=== PATIENT | male | born 1975 | race African-American/Black ===

== ENCOUNTER → 2022-04-14 08:18 | Outpatient (REF) | payer OTHER, SELFPAY ==
--- NOTE | ~2022-04-14 | XR_ITS ---
EXAMINATION: XR CHEST CLINICAL INFORMATION: SOB COMPARISON: None TECHNIQUE: 2 views of the chest were obtained. FINDINGS: No significant abnormality is noted involving the heart, lungs, mediastinum, bony thorax or soft tissues. XR/XR chest 2V IMPRESSION: Unremarkable chest examination.
--- NOTE | 2022-04-14 08:52 | CA_ITS ---
Transthoracic Echocardiogram Patient (Last, First, Middle): Andrew Regalado, Gender: Male Date of : 1975 Age: 46 Procedure Date: 04/14/2022 Procedure Type: Transthoracic Echocardiogram Location: OP Height: 160.02 cm Weight: 70.31 kg BSA: 1.74 m2 Heart Rate: bpm BP: 124 / 80 mmHg Magazine Hand: Referring MD: George Gonzales MD Symptoms: BARNARD Study Quality: Good ECG Rhythm: Sinus Conclusions: - Normal left ventricular size and systolic function. There is mildly increased left ventricular wall thickness. The visually estimated ejection fraction is between 60-65%. - The basal inferior segment is akinetic. - The mid inferior segment is hypokinetic. - Normal right ventricular cavity size and systolic function. Findings Left Ventricle Normal left ventricular size and systolic function. There is mildly increased left ventricular wall thickness. The visually estimated ejection fraction is between 60-65%. There is evidence of regional wall motion abnormalities. Diastolic function is normal for age. Wall Motion Rest Echo Findings The mid inferior segment is hypokinetic. The basal inferior segment is akinetic. Right Ventricle Normal right ventricular cavity size and systolic function. Atria Both atria are normal in size. Aortic Valve Normal aortic valve structure and function. There is no aortic valve stenosis. There is no aortic valve regurgitation. Mitral Valve The mitral valve appears normal. There is no mitral valve regurgitation. There is no mitral valve stenosis. Pulmonic Valve The pulmonic valve was not well visualized. Tricuspid Valve Normal tricuspid valve structure and function. There is no tricuspid valve regurgitation. Normal right atrial pressure. There is no evidence of pulmonary hypertension. Great Vessels All visible segments of the aorta are normal in size. The pulmonary artery was not well visualized. Venous The inferior vena cava is normal in size and collapses greater than 50% with inspiration. Pericardium/Pleural There is no evidence of pericardial effusion. Prior Study Comparison No prior study available for comparison. Measurements 2D Linear Measurements IVSd: 1.30 0.6-0.9/0.6-1.0 cm LVIDd: 4.15 3.9-5.3/4.2-5.9 cm LVIDd Index: 2.39 2.4-3.2/2.2-3.1 cm/m2 LVIDs: 2.62 2.0-3.6 cm LVPWd: 1.29 0.7-1.1 cm Ao Root: 2.90 2.1-3.5 cm LA Diam: 3.50 2.7-3.8/3.0-4.0 cm LAIDs Index: 2.01 1.5-2.3 cm/m2 LV Mass: 244.10 67-162/88-224 g LV Mass Index: 140.29 43-95/49-115 g/m2 LVOT Diam: 2.20 3.0+(-)1.3 cm Mitral Valve MV Pk E: 0.54 MV PK A: 0.72 MV Decel Time: 172.00 E/A: 0.80 E'Lateral: 14.30 E'Medial: 6.42 E/E' Med: 8.40 E/E' Lat: 3.80 PHT: 50.00 MVA PHT: 4.40 Decel [place]: 3.14 Aortic Valve AoV Pk Raul: 1.39 AoV Mn Raul: 0.86 AoV VTI: 0.29 AoV Pk Grad: 8.00 Aov Mn Grad: 4.00 ROEL Cont.VTI: 2.14 LVOT LVOT Pk Raul: 0.76 LVOT Mn Raul: 0.50 LVOT VTI: 0.16 LVOT Pk Grad: 2.00 LVOT Mn Grad: 1.00 LVOT Diam: 2.20 LVOT Area: 3.80 Diastolic Function MV Pk E: 0.54 MV Pk A: 0.72 E/A: 0.80 E'Medial: 6.42 E/E' Med: 8.40 E' Laterial: 14.30 E/E' Lat: 3.80 Tricuspid Valve TR Pk Raul: 2.24 TR Pk Grad: 20.00 RVSP: 25.00 Great Vessels Aorta Ao Root-2D: 2.90 2.0-3.7 cm Ao Asc: 2.80 2.1-3.4 cm Pulmonary Valve PV Pk Raul: 0.90 Peak PV Grad: 3.00 Updated in Other Vendor System with Status of Final Salvador Wheat MD electronically signed on 04/16/2022 12:16:50 PM with status of Final
== END ==
LOC: HO.CARD 08:18
PROVIDERS: PCP Family Medicine; Visit Provider Family Medicine
DX: R06.02 Shortness of breath (principal)
CPT/HCPCS: 71046; 93306

== ENCOUNTER → 2022-05-19 08:01 | Outpatient (REF) | payer OTHER, SELFPAY ==
--- NOTE | ~2022-05-19 | NM_ITS ---
EXERCISE MYOCARDIAL PERFUSION STUDY INDICATION: Shortness of breath, assess for coronary disease and ischemia TECHNIQUE: The patient was brought in for an exercise perfusion study on 05/19/2022. Patient performed exercise as per Everardo protocol and was injected 25 mCi of sestamibi once target heart rate was achieved. Images were obtained using the SPECT gamma camera interlaced with the gating device. Images were obtained in supine position. Resting perfusion study was performed on 05/23/2022. Patient was administered 25 mCi of sestamibi intravenously at rest. Images were then obtained in supine position. Total DLP 86mGy-cm. Images were processed with the software and compared side to side in short axis, horizontal long axis and vertical long axis views. FINDINGS: Raw images were reviewed. The stress perfusion study showed diminished tracer uptake along the inferior wall but there is also adjacent subdiaphragmatic tracer uptake with CT attenuation correction, still difficult to assess inferior wall due to the subdiaphragmatic uptake. The gated study shows normal LV systolic function with calculated LVEF of 72%. LV cavity is normal in size. The gated study shows normal wall thickening and contraction of segments. Resting study shows no significant perfusion abnormality in the septum, anterior wall, lateral wall and apex. There is subdiaphragmatic tracer uptake interfering with inferior wall assessment. This is in both uncorrected as well as attenuation corrected images. Gating at rest reveals normal wall motion with ejection fraction at 71%. The findings are consistent with no definite reversible defects. Inferior wall perfusion difficult to assess due to adjacent subdiaphragmatic uptake. NM/NM rusty perf SPECT rest & str IMPRESSION: 1. Myocardial perfusion imaging study shows no clear evidence of any ischemia or infarction. Inferior wall perfusion difficult to assess due to subdiaphragmatic tracer uptake, but seems to have normal contractility on gating. 2. Gated LVEF is 72% during stress and 71% during rest. 3. Transient ischemic dilatation not present. EKG component of the test reported separately.
--- NOTE | 2022-05-19 08:04 | CA_ITS ---
Acquisition Time: 2022-05-19 08:06:50 Total Exercise Time: 00:07:45 Test Indications: SOB Medications: SEE CHART Protocol: MARCOS Max HR: 151 BPM 88% of Pred: 171 BPM Max BP: 148/068 mmHG Max Work Load: 9.7 METS Exercise stress test with exercise 7 min 45 sec of Marcos protocol, with mild to mod sob, no chest discomfort, without arrythmia, with normotensive response to exercise, without EKG changes meeting criteria for ischemia, in later recovery there is downsloping ST lead III and slight in V5-6 of unclear significance. Nuclear images pending. Test reviewed with Dr Vences Referred By: George Gonzales Overread By: NATHANIEL CRONIN
== END ==
LOC: HO.CARD 08:01
PROVIDERS: Visit Provider Family Medicine
DX: R06.02 Shortness of breath (principal); I51.7 Cardiomegaly
CPT/HCPCS: 78452; 93017; A9500

== ENCOUNTER 2022-05-23 08:18 | Outpatient (REF) | payer OTHER, SELFPAY ==
[2022-05-23 08:57] LABS: MANUAL DIFF FLAG NO
[2022-05-23 09:33] LABS: Basophils Percent Auto 0.8 % (0-2); Eosinophils Absolute Auto 0.1 X10*3/uL (0.0-0.4); Eosinophils Percent Auto 2.1 % (0-4); Hematocrit 42.9 % (42.0-52.0); Hemoglobin 14.6 g/dl (14.0-18.0); Imm Gran Abs Auto 0.02 X10*3/uL (0.00-0.03); Imm Gran Pct Auto 0.4 % (0.0-0.4); Lymphocytes Absolute Auto 0.9 X10*3/uL (1.2-4.9); Lymphocytes Percent Auto 17.8 % (20-40); Mean Corpuscular Volume 82.3 fL (80.0-98.0); Mean Platelet Volume 9.7 fL (9.4-12.4); Monocytes Absolute Auto 0.3 X10*3/uL (0.1-1.2); Monocytes Percent Auto 6.2 % (2-11); Neutrophils Absolute Auto 3.8 x10*3/uL (2.0-8.3); Neutrophils Percent Auto 72.7 % (45-73); Platelet Count 286 X10*3/uL (160-400); Red Blood Count 5.21 X10*6/uL (4.60-5.80); Red Cell Distribution Width 12.2 % (11.0-16.0); White Blood Count 5.2 X10*3/uL (4.8-10.8)
[2022-05-23 09:55] LABS: Rheumatoid Factor < 15.0 IU/mL (<15.0)
[2022-05-23 10:26] LABS: Erythrocyte Sedimentation Rate 13 MM/HR (0-15)
[2022-05-27 20:27] LABS: Anti Nuclear Antibody Screen POSITIVE (NEGATIVE); Anti Nuclear Antibody Titer 1:40 titer
== END 2022-05-23 08:19 | disposition home or self-care (01) ==
LOC: HO.LAB 08:18
PROVIDERS: PCP Family Medicine; Visit Provider Family Medicine
DX: M19.90 Unspecified osteoarthritis, unspecified site (principal); M79.10 Myalgia, unspecified site
CPT/HCPCS: 36415; 82550; 85025; 85652; 86038; 86039; 86431

== ENCOUNTER 2022-06-09 13:49 | Outpatient (REF) | payer OTHER, SELFPAY ==
--- NOTE | 2022-06-09 | PFT_ITS ---
Forced vital capacity 100%, FEV1 107%. FEV1/FVC ratio is 85. [id number] 129% and MVV 87%. Post bronchodilator therapy, there is a slight increase in VUG52-56, and MVV. Total lung capacity 96%. Residual volume 98%. Diffusion capacity 119%. CONCLUSION: Normal pulmonary function study and no evidence of obstructive or restrictive pulmonary disorder is noted. MD LOUIE Peters/BARTL / [id number]
== END 2022-06-09 13:50 | disposition home or self-care (01) ==
LOC: HO.RESP 13:49
PROVIDERS: PCP Family Medicine; Visit Provider Family Medicine
DX: R06.02 Shortness of breath (principal); Z86.16 Personal history of COVID-19
CPT/HCPCS: 94060; 94727; 94729

== ENCOUNTER → 2022-09-26 10:06 | Outpatient (BNVA) | payer OTHER, SELFPAY | PROVIDERS: PCP Family Medicine; Visit Provider Internal Medicine Cardiovascular Disease | DX: R06.02 Shortness of breath (principal) | CPT/HCPCS: 93005 ==

== ENCOUNTER 2022-09-27 08:09 | Outpatient (REF) | payer OTHER, SELFPAY ==
[2022-09-27 08:36] LABS: Hematocrit 43.3 % (42.0-52.0); Hemoglobin 14.8 g/dl (14.0-18.0); Mean Corpuscular HGB Conc 34.2 g/dl (31.0-36.0); Mean Corpuscular Hemoglobin 28.3 pg (27.0-33.0); Mean Corpuscular Volume 82.8 fL (80.0-98.0); Mean Platelet Volume 9.7 fL (9.4-12.4); Platelet Count 237 X10*3/uL (160-400); Red Blood Count 5.23 X10*6/uL (4.60-5.80); Red Cell Distribution Width 12.6 % (11.0-16.0); White Blood Count 5.6 X10*3/uL (4.8-10.8)
[2022-09-27 08:42] LABS: INTERNATIONAL NORM RATIO 1.2 (0.9-1.1); Prothrombin Time 13.9 SEC (10.0-13.1)
[2022-09-27 09:01] LABS: Anion Gap 11 (12-20); Blood Urea Nitrogen 13 mg/dL (9-16); Calcium 9.3 mg/dL (8.4-10.2); Carbon Dioxide 25 mmol/L (22-29); Chloride 107 mmol/L (96-108); Cholesterol 188 mg/dL; Estimated Glomerular Filt Rate > 60; Glucose Random 82 mg/dL (60-115); HDL Cholesterol 26 mg/dL; LDL Cholesterol Calculated 111 mg/dl; Potassium 4.4 mmol/L (3.3-5.1); Sodium 139 mmol/L (135-145); Triglycerides 258 mg/dL
[2022-09-28 11:43] LABS: CRP High Sensitivity 1.3 mg/L
== END 2022-09-27 08:10 | disposition home or self-care (01) ==
LOC: HO.LAB 08:09
PROVIDERS: PCP Family Medicine; Visit Provider Internal Medicine Cardiovascular Disease
DX: R06.02 Shortness of breath (principal); I25.10 Atherosclerotic heart disease of native coronary artery without angina pectoris; E78.5 Hyperlipidemia, unspecified
CPT/HCPCS: 36415; 80048; 80061; 85027; 85610; 86141

== ENCOUNTER → 2022-10-18 09:22 | Outpatient (BNVA) | payer OTHER, SELFPAY | PROVIDERS: PCP Family Medicine; Referring Provider Family Medicine; Visit Provider Internal Medicine Cardiovascular Disease | DX: Z13.89 Encounter for screening for other disorder (principal) ==

== ENCOUNTER → 2022-11-07 07:35 | Outpatient (REF) | payer OTHER, SELFPAY ==
--- NOTE | 2022-11-07 07:39 | HM_ITS ---
Conclusion: 1. Patient was monitored for total period of 2 days and 23 hours 2. Baseline was normal sinus with average heart of 90 beats per minute 3. No significant pauses or bradycardia noted 4. Very rare ectopy noted 5. Patient reported 10 events without corresponding symptoms in the diary which correlated with sinus rhythm MTDD
== END ==
LOC: HO.CARD 07:35
PROVIDERS: PCP Family Medicine; Visit Provider Internal Medicine Cardiovascular Disease
DX: R06.02 Shortness of breath (principal)
CPT/HCPCS: 93242

== ENCOUNTER 2023-02-05 11:21 | Outpatient (REF) | payer OTHER, SELFPAY | END 2023-02-05 11:22 | disposition home or self-care (01) | LOC: HO.10HDL 11:21 | PROVIDERS: Visit Provider Internal Medicine Cardiovascular Disease | DX: Z13.89 Encounter for screening for other disorder (principal) ==

== ENCOUNTER 2023-02-05 11:37 | Outpatient (REF) | payer OTHER, SELFPAY ==
[2023-02-05 14:16] LABS: Free T4 (Free Thyroxine) 0.96 ng/dL (0.71-1.85); Thyroid Stimulating Hormone 1.19 uIU/mL (0.32-4.0)
== END 2023-02-05 11:38 | disposition home or self-care (01) ==
LOC: HO.10HDL 11:37
PROVIDERS: Visit Provider Family Medicine
DX: R00.0 Tachycardia, unspecified (principal)
CPT/HCPCS: 36415; 84439; 84443

== ENCOUNTER 2023-03-02 09:49 | Outpatient (REF) | payer OTHER, SELFPAY ==
--- NOTE | ~2023-03-02 | CT_ITS ---
EXAMINATION: CT CHEST WITH CONTRAST CLINICAL INFORMATION: Shortness of breath. Rule out interstitial lung disease and hilar adenopathy COMPARISON: Previous chest x-ray March 2022 TECHNIQUE: Multidetector volumetric CT imaging of the chest was obtained after the administration of 65 mL of Omnipaque 350 intravenous contrast without immediate adverse reactions. Axial MIP volume rendering provided. Sagittal and coronal reformatted images were obtained. This CT examination was performed using dose optimization techniques as appropriate, variously including the following: *Automated exposure control *Adjustment of mA and/or kV according to patient size (this includes techniques or standardized protocols for targeted exams where dose is matched to indication/reason for exam; i.e. extremities or head) *Use of iterative reconstruction technique DLP: 151 mGy-cm FINDINGS: EDUCATION RESEARCH ANALYST: LUNGS: There are increased dependent markings in the bilateral lower lobes. It is uncertain whether this represents dependent atelectasis or represent mild interstitial lung disease. There is a 2 mm calcified right lower lobe nodule axial image 113 series 11. There is a 2 mm calcified peripheral left lower lobe nodule axial image 1 46 and 154 series 11. There is mild focal bronchiectasis in the right lower lobe and bronchial soft tissue opacification or mucus plugging for example axial image 103 series 11. There is a second area of bronchiectasis in the more lateral right lower lobe for example axial image 110 series 11. MEDIASTINUM: The mediastinum is normal. PLEURA: There is no pleural effusion. No pleural mass or thickening. AXILLA: No lymphadenopathy. UPPER ABDOMEN: There may be mild fatty infiltration of the liver. There are multiple small low-attenuation liver lesions. Larger lesions are compatible with small cysts. Smaller lesions are difficult to definitively characterize. Largest lesion measures 1.3 cm anterior segment of the right lobe of the liver axial image 54 series 9. OSSEOUS STRUCTURES: Unremarkable. CT/CT chest w IV con IMPRESSION: Dependent increased markings in both lower lobes questionable for dependent atelectasis versus mild interstitial lung disease. Is could be determined with prone imaging of the chest. Focal areas of bronchiectasis in the right lower lobe, some with bronchial soft tissue opacification or mucus plugging. Small calcified bilateral lower lobe pulmonary nodules nodules. Fleischner guidelines were followed.
[2023-03-02] MEDS: iohexoL 350 MG/ML 100 ML INFUS..BTL IV (10:56)
[2023-03-02 13:19] LABS: Creatinine POC 0.8 mg/dL (0.5-1.4); GFR POC > 60
== END 2023-03-02 09:50 | disposition home or self-care (01) ==
LOC: HO.CT 09:49
PROVIDERS: PCP Family Medicine; Visit Provider Family Medicine
DX: I51.7 Cardiomegaly (principal); R06.02 Shortness of breath; Z86.16 Personal history of COVID-19
CPT/HCPCS: 71260; 82565; Q9967

== ENCOUNTER 2023-07-10 11:58 | Outpatient (REF) | payer OTHER, SELFPAY ==
[2023-07-10 12:27] LABS: MANUAL DIFF FLAG NO
[2023-07-10 12:44] LABS: Basophils Percent Auto 0.5 % (0-2); Eosinophils Absolute Auto 0.1 X10*3/uL (0.0-0.4); Eosinophils Percent Auto 1.7 % (0-4); Hematocrit 42.1 % (42.0-52.0); Hemoglobin 14.8 g/dl (14.0-18.0); Imm Gran Abs Auto 0.02 X10*3/uL (0.00-0.03); Imm Gran Pct Auto 0.3 % (0.0-0.4); Lymphocytes Absolute Auto 1.6 X10*3/uL (1.2-4.9); Lymphocytes Percent Auto 24.6 % (20-40); Mean Corpuscular HGB Conc 35.2 g/dl (31.0-36.0); Mean Corpuscular Volume 82.4 fL (80.0-98.0); Mean Platelet Volume 9.8 fL (9.4-12.4); Monocytes Absolute Auto 0.4 X10*3/uL (0.1-1.2); Monocytes Percent Auto 6.5 % (2-11); Neutrophils Absolute Auto 4.2 x10*3/uL (2.0-8.3); Neutrophils Percent Auto 66.4 % (45-73); Platelet Count 262 X10*3/uL (160-400); Red Blood Count 5.11 X10*6/uL (4.60-5.80); Red Cell Distribution Width 12.2 % (11.0-16.0); White Blood Count 6.3 X10*3/uL (4.8-10.8)
[2023-07-10 13:20] LABS: Blood Urea Nitrogen 15 mg/dL (9-16); Estimated Glomerular Filt Rate > 60
[2023-07-10 13:38] LABS: Thyroid Stimulating Hormone 1.49 uIU/mL (0.32-4.0)
== END 2023-07-10 11:59 | disposition home or self-care (01) ==
LOC: HO.LAB 11:58
PROVIDERS: PCP Family Medicine; Visit Provider Family Medicine
DX: R06.02 Shortness of breath (principal); R53.83 Other fatigue
CPT/HCPCS: 36415; 82565; 84443; 84520; 85025

== ENCOUNTER 2024-02-27 07:53 | Outpatient (REF) | payer OTHER, SELFPAY ==
[2024-02-27 10:55] LABS: Alanine Aminotransferase 55 U/L (0-40); Albumin Level 4.4 g/dL (3.5-5.0); Alkaline Phosphatase 80 U/L (39-117); Aspartate Amino Transferase 28 U/L (5-37); Bilirubin Direct 0.1 mg/dL (0.0-0.5); Bilirubin Total 0.4 mg/dL (0.0-1.0); Glucose Fasting 100 mg/dL (60-99); Total Protein 6.9 g/dL (6.5-8.0)
== END 2024-02-27 07:54 | disposition home or self-care (01) ==
LOC: HO.10HDL 07:53
PROVIDERS: Visit Provider Family Medicine
DX: K75.81 Nonalcoholic steatohepatitis (NASH) (principal); Z83.3 Family history of diabetes mellitus
CPT/HCPCS: 36415; 80076; 82947

== ENCOUNTER 2024-04-30 10:27 | Inpatient (IN) | payer OTHER, SELFPAY ==
[2024-04-30] VITALS (19 sets, daily range): BP systolic 90–119; BP diastolic 49–65; PULSE 75–95; RESP 9–19; TEMP 36.6–38.2; O2SAT 94–100; BMI 29.5
--- NOTE | ~2024-04-30 | CT_ITS ---
EXAMINATION: CT ABDOMEN AND PELVIS WITH CONTRAST CLINICAL INFORMATION: Right upper quadrant pain. COMPARISON: None available. TECHNIQUE: Multidetector volumetric images were obtained from the superior aspect of the liver through the pubic symphysis following administration 85 mL of Omnipaque 350 intravenous contrast. Sagittal and coronal reformatted images were obtained on the technologist's workstation. Oral contrast: No This CT examination was performed using dose optimization techniques as appropriate, variously including the following: *Automated exposure control *Adjustment of mA and/or kV according to patient size (this includes techniques or standardized protocols for targeted exams where dose is matched to indication/reason for exam; i.e. extremities or head) *Use of iterative reconstruction technique DLP: 543 mGy-cm FINDINGS: LUNG BASES: No pleural or pericardial effusion. LIVER, GALLBLADDER, AND BILIARY TREE: The liver is enlarged and decreased in attenuation. Numerous hepatic hypodensities too small to characterize. The larger hypodensities represent cysts. No biliary ductal dilatation is present. The gallbladder is unremarkable with no evidence of radiopaque gallstones, gallbladder wall thickening, or obvious pericholecystic inflammatory changes. PANCREAS: Unremarkable. SPLEEN: Unremarkable. ADRENAL GLANDS: Unremarkable. KIDNEYS AND URETERS: The kidneys are normal in size, shape, and attenuation. No hydronephrosis, hydroureter, or calculi seen. No perinephric stranding. BLADDER: Underdistended. GASTROINTESTINAL TRACT: Extensive inflammatory changes are present in the right lower quadrant there is a loop of small bowel which terminates in a rim-enhancing collection containing gas measuring 1.9 x 2.2 x 2.6 cm. Submucosal fatty infiltration of the terminal ileum. Appendix is within normal limits. No small bowel obstruction. ABDOMINAL WALL: No significant hernia is appreciated. LYMPH NODES: Numerous subcentimeter mesenteric lymph nodes. VASCULAR: Normal caliber abdominal aorta. PELVIC VISCERA: Unremarkable. OSSEOUS STRUCTURES: No destructive bone lesions. CT/CT abdomen pelvis w IV con IMPRESSION: Extensive inflammatory changes in the right lower quadrant with a loop of small bowel terminating in a rim-enhancing collection containing gas/abscess measuring 1.9 x 2.2 x 2.6 cm. Consideration may be given to a perforated Meckel's diverticulum with abscess formation. Surgical consultation is advised. Hepatomegaly and hepatic steatosis. Findings were reviewed and discussed with BONITA Wagner at 2:00 PM on 04/30/2024.
[2024-04-30 10:59] LABS: MANUAL DIFF FLAG NO
[2024-04-30 11:02] LABS: Basophils Percent Auto 0.2 % (0-2); Eosinophils Percent Auto 0.1 % (0-4); Hematocrit 40.2 % (42.0-52.0); Hemoglobin 14.3 g/dl (14.0-18.0); Imm Gran Abs Auto 0.04 X10*3/uL (0.00-0.03); Imm Gran Pct Auto 0.3 % (0.0-0.4); Lymphocytes Absolute Auto 0.9 X10*3/uL (1.2-4.9); Lymphocytes Percent Auto 6.5 % (20-40); Mean Corpuscular HGB Conc 35.6 g/dl (31.0-36.0); Mean Corpuscular Hemoglobin 29.5 pg (27.0-33.0); Mean Corpuscular Volume 82.9 fL (80.0-98.0); Mean Platelet Volume 10.1 fL (9.4-12.4); Monocytes Absolute Auto 1.3 X10*3/uL (0.1-1.2); Monocytes Percent Auto 9.2 % (2-11); Neutrophils Absolute Auto 11.6 x10*3/uL (2.0-8.3); Neutrophils Percent Auto 83.7 % (45-73); Platelet Count 223 X10*3/uL (160-400); Red Blood Count 4.85 X10*6/uL (4.60-5.80); Red Cell Distribution Width 12.6 % (11.0-16.0); White Blood Count 13.9 X10*3/uL (4.8-10.8)
[2024-04-30 11:18] LABS: Alanine Aminotransferase 34 U/L (0-40); Albumin Level 4.5 g/dL (3.5-5.0); Alkaline Phosphatase 86 U/L (39-117); Anion Gap 11 (12-20); Aspartate Amino Transferase 16 U/L (5-37); Bilirubin Direct 0.2 mg/dL (0.0-0.5); Bilirubin Total 0.7 mg/dL (0.0-1.0); Blood Urea Nitrogen 10 mg/dL (9-16); Calcium 9.9 mg/dL (8.4-10.2); Carbon Dioxide 28 mmol/L (22-29); Chloride 104 mmol/L (96-108); Creatinine Clr Calc Pharmacy 94.7; Estimated Glomerular Filt Rate > 60; Glucose Random 95 mg/dL (60-115); Lipase 20 U/L (8-78); Potassium 4.3 mmol/L (3.3-5.1); Sodium 139 mmol/L (135-145)
--- NOTE | 2024-04-30 11:21 | ED.GENADULT ---
HPI - General Adult General Chief complaint: Abdominal Pain Stated complaint: abd pain Time Seen by Provider: 04/30/24 11:21 Source: patient and family (patient's ) Mode of arrival: ambulatory Limitations: no limitations History of Present Illness ED Provider: Marina Bates PA-C HPI narrative: Patient is a 48 year old assigned male at with no reported medical history presenting to the emergency department today with abdominal pain. Patient states that over the last 2 days he has had abdominal pain and nausea. Patient denies any dizziness, lightheadedness, vomiting, fever, chills, blurry vision, double vision, loss of vision, chest pain, difficulty breathing, shortness of breath, back pain, night sweats, pain with urination, increased urinary frequency, increased urinary urgency, blood in his urine or stool, syncope or a near syncopal episode, recent trauma or falls, bowel incontinence, bladder incontinence, or any other complaints at this time. Onset (ago): day(s) (2) Location: abdomen Severity: mild Severity scale (1-10): 4 Quality: aching Pain Consistency: intermittent Relieving factors: none Exacerbating factors: none Associated symptoms: nausea/vomiting Treatments prior to arrival: none Related Data Home Medications ?Medication ?Instructions ?Recorded ?Confirmed montelukast 10 mg tablet 10 mg PO BEDTIME 09/26/22 10/18/22 (Singulair) amitriptyline 100 mg tablet 100 mg PO BEDTIME 10/18/22 10/18/22 amitriptyline 75 mg tablet 75 mg PO BEDTIME 04/30/24 04/30/24 gabapentin 300 mg capsule 300 mg PO DAILY 04/30/24 sertraline 25 mg tablet 25 mg PO DAILY 04/30/24 Previous Rx's ?Medication ?Instructions ?Recorded metoprolol succinate 25 mg 25 mg PO DAILY #30 tabs 09/26/22 tablet,extended release 24 hr (Toprol XL) Allergies Allergy/AdvReac Type Severity Reaction Status Date / Time phenytoin [From Dilantin] Allergy Severe Anaphylaxis Verified 04/30/24 10:30 Review of Systems Constitutional: Constitutional: Reports no additional constitutional complaints, Denies chills, Denies fever(s) and Denies night sweats Eyes: Eyes: Reports no additional eye complaints, Denies blurry vision, Denies change in vision, Denies diplopia, Denies eye discharge, Denies loss of vision and Denies eye pain ENT: Denies dizziness Cardiovascular: Cardiovascular: Reports no additional cardiovascular complaints, Denies chest pain, Denies lightheadedness, Denies Loss of Consciousness and Denies dyspnea Respiratory: Respiratory: Reports no additional respiratory complaints and Denies dyspnea Gastrointestinal: Gastrointestinal: Reports no additional gastrointestinal complaints, Reports abdominal pain, Denies melena, Denies hematochezia, Denies change in bowel habits, Denies change in stool character and Reports nausea Genitourinary: Genitourinary: Reports no additional male genitourinary complaints, Denies hematuria, Denies oliguria, Denies difficulty urinating, Denies dysuria, Denies urinary frequency, Denies urinary hesitancy, Denies urinary incontinence and Denies urinary urgency Musculoskeletal: Musculoskeletal: Reports no additional musculoskeletal complaints, Denies numbness and Denies tingling Neurologic: Denies dizziness, Denies loss of vision, Denies numbness and Denies tingling Psychiatric: Psychiatric: Reports no additional psychiatric complaints Endocrine: Endocrine: Reports no additional endocrine complaints Hematologic/Lymphatic: Hematologic/Lymphatic: Reports no additional hematologic/lymphatic complaints Allergic/Immunologic: Allergic/Immunologic: Reports no additional allergic/immunologic complaints PMFSH Past Medical History Attestation statement: The following information was validated with the patient. (all information validated with the patient's ) Source: old records reviewed, obtained from family (patient's provided additional history and confirmed the history provided by the patient.) and nursing notes reviewed Surgical History S/P cardiac cath Hx of hernia repair Family History Family History Father Heart valve replaced CAD (coronary artery disease) Mother CAD (coronary artery disease) Social History Social History Alcohol intake: current Alcohol intake frequency: holidays/special occasions only Patient Tobacco Use Status: Never used Tobacco Smoked in Last 30 Days: No Use of substances other than those prescribed or required for medical reasons: No Advance Directives: No Advance Directives Information Provided: No Physical Exam ED Vital Signs: Vital Signs - 24 hr 04/30/24 10:29 04/30/24 13:53 Temperature 98 F 99.4 F Pulse Rate 82 83 Respiratory Rate 19 16 Blood Pressure 119/64 112/65 Pulse Oximetry 98 100 Oxygen Delivery Method Room Air Room Air BMI result Body Mass Index 29.5 Const General: cooperative, no acute distress, alert and awake Nutritional Appearance: well nourished Orientation/consciousness: patient oriented x3 Limitations: no limitations HENMT Head: Yes normal to inspection and Yes atraumatic Ears: hearing grossly normal bilaterally and external ears normal General nose exam: Normal external nose present, no nasal discharge noted and no epistaxis Face and sinus: Yes normal facial exam, No abrasion and No laceration Mouth: Normal oral and palatal mucosa present, no drooling and no muffled voice Eyes General: appearance normal, both eyes and all related structures Periorbital: periorbital findings normal Eyelids: Yes eyelids normal Conjunctivae: conjunctivae normal Pupils: Equal, round and reactive pupils present EOM: EOMs intact bilaterally Neck Neck: Yes normal visual inspection, Yes full ROM and Yes no lymphadenopathy Chest Chest palpation & inspection: normal inspection of the chest Resp Effort & Inspection: normal respiratory effort and able to speak in complete sentences GI Inspection: Yes normal to inspection Palpation (GI): Soft to palpation, not firm and Tenderness to palpation present (GI) in the LUQ and in the RUQ Neuro General: patient oriented x3 and moves all extremities Cranial nerves: Yes Equal, round and reactive pupils present Cognition (Neuro): normal cognition Extrem General: Yes normal to inspection, Yes full ROM and Yes capillary refill normal Psych Appearance: grossly normal Mental Status: mental status grossly normal Affect: normal affect Attitude: cooperative Thought process: Normal thought process present Thought content: Normal thought content present Insight: Good insight present (Psych) Medications Administered Discontinued Medications Generic Name Dose Route Start Last Admin Trade Name Kamarq PRN Reason Stop Dose Admin Acetaminophen 975 mg 04/30/24 13:46 04/30/24 13:51 Acetaminophen 325 Mg Tablet PO 04/30/24 13:47 975 mg ONCE ONE Administration Iohexol 100 ml 04/30/24 12:34 04/30/24 12:34 Iohexol 350 Mg/Ml 100 Ml Infus..Btl IV 04/30/24 12:35 85 ml ONCE ONE Administration Morphine Sulfate 4 mg 04/30/24 12:28 04/30/24 13:21 Morphine Sulfate 4 Mg/Ml Cartridge IVPUSH 04/30/24 12:29 Not Given ONCE ONE Protocol Ondansetron HCl 4 mg 04/30/24 12:28 04/30/24 13:21 Ondansetron Hcl 4 Mg/2 Ml Vial IVPUSH 04/30/24 12:29 4 mg ONCE ONE Administration Pantoprazole Sodium 40 mg 04/30/24 12:28 04/30/24 13:21 Pantoprazole Sodium 40 Mg/10 Ml Vial IVPUSH 04/30/24 12:29 40 mg ONCE ONE Administration Medical Decision Making Medical Decision Making MDM Narrative: Patient is a 48 year old assigned male at with no reported medical history presenting to the emergency department today with abdominal pain. Patient's physical exam was as noted in the physical exam portion of this note. Patient's blood work showed a mildly elevated WBC count but was otherwise unremarkable. Patient's urine showed no acute process. Patient's CT abd/pelvis showed concerns of a perforated meckel's diverticulum. I spoke to the surgery team who recommended admission and taking the patient to the OR. I explained my physical exam findings as well as all test results to the patient and the patient's . I answered all questions asked by the patient and the patient's . Patient and the patient's verbalized agreement and understanding with this treatment plan and admission. Differential Diagnosis Differential Diagnoses: The differential diagnosis associated with the presentation includes Abdominal pain Diverticulitis Perforated diverticulum Appendcitis Cholecystitis Admission/Observation Consideration of admission/observation: Escalation of care including admission/observation considered Patient admitted to the surgical service. Consult Healthcare Provider Management of the patient was discussed with: Composite Mechanic (spoke to the general surgery team as noted in the MDM Rationale portion of this note.) Lab Data [facility] Lab Attestation statement: I reviewed the patient's lab results. My interpretation of these results are in the MDM Rationale portion of this note. 04/30/24 10:54 04/30/24 10:54 Labs: Lab Results 04/30/24 Range/Units 10:54 WBC 13.9 H (4.8-10.8) X10*3/uL RBC 4.85 (4.60-5.80) X10*6/uL Hgb 14.3 (14.0-18.0) g/dl Hct 40.2 L (42.0-52.0) % MCV 82.9 (80.0-98.0) fL MCH 29.5 (27.0-33.0) pg MCHC 35.6 (31.0-36.0) g/dl RDW 12.6 (11.0-16.0) % Plt Count 223 (160-400) X10*3/uL MPV 10.1 (9.4-12.4) fL Immature Gran % (Auto) 0.3 (0.0-0.4) % Neut % (Auto) 83.7 H (45-73) % Lymph % (Auto) 6.5 L (20-40) % [place] % (Auto) 9.2 (2-11) % Eos % (Auto) 0.1 (0-4) % Baso % (Auto) 0.2 (0-2) % Lymph # (Auto) 0.9 L (1.2-4.9) X10*3/uL [place] # (Auto) 1.3 H (0.1-1.2) X10*3/uL Eos # (Auto) 0.0 (0.0-0.4) X10*3/uL Baso # (Auto) 0.0 (0.0-0.2) X10*3/uL Abs Immat Gran (auto) 0.04 H (0.00-0.03) X10*3/uL Absolute Neuts (auto) 11.6 H (2.0-8.3) x10*3/uL Absolute Nucleated RBC 0.000 (0.0-0.012) X10*3/uL Nucleated RBC % (auto) 0.0 (0.0-0.2) /100WBC Sodium 139 (135-145) mmol/L Potassium 4.3 (3.3-5.1) mmol/L Chloride 104 (96-108) mmol/L Carbon Dioxide 28 (22-29) mmol/L Anion Gap 11 L (12-20) BUN 10 (9-16) mg/dL Creatinine 0.88 (0.5-1.4) mg/dL Estim Creat Clear Calc 94.7 Estimated GFR > 60 Random Glucose 95 (60-115) mg/dL Calcium 9.9 D (8.4-10.2) mg/dL Total Bilirubin 0.7 (0.0-1.0) mg/dL Direct Bilirubin 0.2 (0.0-0.5) mg/dL AST 16 (5-37) U/L ALT 34 (0-40) U/L Alkaline Phosphatase 86 (39-117) U/L Total Protein 7.0 (6.5-8.0) g/dL Albumin 4.5 (3.5-5.0) g/dL Lipase 20 (8-78) U/L Urine Color Yellow Urine Appearance Clear Urine pH 6.0 (5.0-9.0) Ur Specific [place] <= 1.005 (1.005-1.025) Urine Protein Negative (Neg-Trace) mg/dL Urine Glucose (UA) Negative (Negative) mg/dL Urine Ketones Negative (Negative) mg/dL Urine Blood Negative (Negative) Urine Nitrite Negative (Negative) Ur Leukocyte Esterase Trace H (Negative) Urine RBC 0-2 (0-2) /HPF Urine WBC 0-5 (0-5) /HPF Ur Squamous Epith Cells 0-2 (0-2) /HPF Urine Bacteria None Seen (None Seen) Hyaline Casts 0-2 (0-2) /LPF Independent Interpretation I performed an independent interpretation of an: CT Scan Interpretation: My interpretation is in agreement with the radiologist's impression of this imaging study. EXAMINATION: CT ABDOMEN AND PELVIS WITH CONTRAST CLINICAL INFORMATION: Right upper quadrant pain. COMPARISON: None available. TECHNIQUE: Multidetector volumetric images were obtained from the superior aspect of the liver through the pubic symphysis following administration 85 mL of Omnipaque 350 intravenous contrast. Sagittal and coronal reformatted images were obtained on the technologist's workstation. Oral contrast: No This CT examination was performed using dose optimization techniques as appropriate, variously including the following: *Automated exposure control *Adjustment of mA and/or kV according to patient size (this includes techniques or standardized protocols for targeted exams where dose is matched to indication/reason for exam; i.e. extremities or head) *Use of iterative reconstruction technique DLP: 543 mGy-cm FINDINGS: LUNG BASES: No pleural or pericardial effusion. LIVER, GALLBLADDER, AND BILIARY TREE: The liver is enlarged and decreased in attenuation. Numerous hepatic hypodensities too small to characterize. The larger hypodensities represent cysts. No biliary ductal dilatation is present. The gallbladder is unremarkable with no evidence of radiopaque gallstones, gallbladder wall thickening, or obvious pericholecystic inflammatory changes. PANCREAS: Unremarkable. SPLEEN: Unremarkable. ADRENAL GLANDS: Unremarkable. KIDNEYS AND URETERS: The kidneys are normal in size, shape, and attenuation. No hydronephrosis, hydroureter, or calculi seen. No perinephric stranding. BLADDER: Underdistended. GASTROINTESTINAL TRACT: Extensive inflammatory changes are present in the right lower quadrant there is a loop of small bowel which terminates in a rim-enhancing collection containing gas measuring 1.9 x 2.2 x 2.6 cm. Submucosal fatty infiltration of the terminal ileum. Appendix is within normal limits. No small bowel obstruction. ABDOMINAL WALL: No significant hernia is appreciated. LYMPH NODES: Numerous subcentimeter mesenteric lymph nodes. VASCULAR: Normal caliber abdominal aorta. PELVIC VISCERA: Unremarkable. OSSEOUS STRUCTURES: No destructive bone lesions. CT/CT abdomen pelvis w IV con IMPRESSION: Extensive inflammatory changes in the right lower quadrant with a loop of small bowel terminating in a rim-enhancing collection containing gas/abscess measuring 1.9 x 2.2 x 2.6 cm. Consideration may be given to a perforated Meckel's diverticulum with abscess formation. Surgical consultation is advised. Hepatomegaly and hepatic steatosis. Findings were reviewed and discussed with BONITA Wagner at 2:00 PM on 04/30/2024. Dictated By: Rosemary Ferris MD Signed By: Electronically signed by Rosemary Ferris MD 04/30/24 1412 Radiology Impression Discussion of test interpretation with radiology: I have reviewed the radiologist's reading. Independent Historian Clinical information obtained from an independent historian. History obtained from or confirmed by: Spouse (patient's provided additional history and confirmed the history provided by the patient.) Critical Care Time Critical Care Time Critical Care Time: Yes Total Critical Care Time: 47 Attestation: I spent 47 minutes of Critical Care Time with this patient. This does not include time spent on separately reported billable procedures. Discharge Plan Discharge Clinical Impression: Perforated Meckel's diverticulum Patient Disposition: Admitted As Inpatient
[2024-04-30 11:38] LABS: Appearance Urine Clear; Color Urine Yellow; Glucose Urine UA Negative (Negative); Leukocyte Esterase Urine Trace (Negative); Nitrite Urine Negative (Negative); Specific Gravity - Urine <= 1.005 (1.005-1.025); UMIC TRIGGER UACC YES; Urine Blood Negative (Negative); Urine Ketones Negative (Negative); Urine Protein Negative (Neg-Trace)
[2024-04-30 11:43] LABS: Bacteria Urine None Seen (None Seen); Hyaline Casts Urine 0-2 /LPF (0-2); RBC Urine 0-2 /HPF (0-2); Squamous Epithelial Cell Urine 0-2 /HPF (0-2); WBC Urine 0-5 /HPF (0-5)
[2024-04-30] MEDS: iohexoL 350 MG/ML 100 ML INFUS..BTL IV (12:34)
[2024-04-30] MEDS: Pantoprazole Sodium 40 MG/10 ML VIAL IVPUSH (13:21)
[2024-04-30] MEDS: ondansetron HCL 4 MG/2 ML VIAL IVPUSH (13:21)
[2024-04-30] MEDS: Acetaminophen 325 MG TABLET 975 MG PO (13:51)
--- NOTE | 2024-04-30 14:46 | PM.HPGS ---
History of Present Illness History of Present Illness Date of Service: 04/30/24 Chief complaint: abd pain Narrative: Andrew Regalado is a 48 year old male presenting with complaints of abdominal pain mainly in the right upper quadrant for the past 2 days. The pain actually began approximately 1 year ago and was intermittent in nature but would resolved spontaneously. Current episode was much more severe and persistent, associated with nausea without vomiting. He reports loose stool but denies diarrhea or constipation. He felt feverish but denied chills. 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 He has undergone previous orthopedic surgery, tonsillectomy and inguinal hernia repair. He denies previous abdominal surgery. Review of Systems Review of Systems: Yes all other systems are reviewed and are negative [facility] Family History Family History Father Heart valve replaced CAD (coronary artery disease) Mother CAD (coronary artery disease) Surgical History Surgical History S/P cardiac cath Hx of hernia repair Social History Social History Alcohol intake: current Alcohol intake frequency: holidays/special occasions only Patient Tobacco Use Status: Never used Tobacco Smoked in Last 30 Days: No Use of substances other than those prescribed or required for medical reasons: No Advance Directives: No Advance Directives Information Provided: No Meds Allergies Allergy/AdvReac Type Severity Reaction Status Date / Time phenytoin [From Dilantin] Allergy Severe Anaphylaxis Verified 04/30/24 10:30 Home Medications ?Medication ?Instructions ?Recorded ?Confirmed ?Last Taken ?Type montelukast 10 mg tablet 10 mg PO BEDTIME 09/26/22 10/18/22 Unknown History (Ferny) amitriptyline 100 mg tablet 100 mg PO BEDTIME 10/18/22 10/18/22 Unknown History Physical Exam Vital Signs: Vital Signs: Last Vital Signs Temp 99.4 F 04/30/24 13:53 Pulse 83 04/30/24 13:53 Resp 16 04/30/24 13:53 BP 112/65 04/30/24 13:53 Pulse Ox 100 04/30/24 13:53 O2 Del Method Room Air 04/30/24 13:53 BMI result Body Mass Index 29.5 Const: General: cooperative and no acute distress Nutritional Appearance: well nourished Orientation/consciousness: patient oriented x3 Limitations: no limitations HEENT: Head: Yes normocephalic and Yes atraumatic Ears: hearing grossly normal bilaterally Resp: Effort & Inspection: normal respiratory effort, no audible wheezes, no cough and no respiratory distress Cardio: Jugular venous distension: no JVD GI: Other: Diffuse tenderness especially in the right upper quadrant and right lower quadrant. No rebound, guarding or rigidity. Bowel sounds are reduced. Inspection: Yes normal to inspection Skin: Other: Warm, dry, no rash Neuro: General: patient oriented x3 Extrem: General: Yes no clubbing, cyanosis or edema Results Results Labs: Short CBC 04/30/24 Range/Units 10:54 WBC 13.9 H (4.8-10.8) X10*3/uL Hgb 14.3 (14.0-18.0) g/dl Hct 40.2 L (42.0-52.0) % Plt Count 223 (160-400) X10*3/uL BMP 04/30/24 10:54 Sodium 139 Potassium 4.3 Chloride 104 Carbon Dioxide 28 BUN 10 Creatinine 0.88 Calcium 9.9 D Liver Function 04/30/24 Range/Units 10:54 Total Bilirubin 0.7 (0.0-1.0) mg/dL Direct Bilirubin 0.2 (0.0-0.5) mg/dL AST 16 (5-37) U/L ALT 34 (0-40) U/L Alkaline Phosphatase 86 (39-117) U/L Albumin 4.5 (3.5-5.0) g/dL Urine 04/30/24 Range/Units 10:54 Urine Color Yellow Urine Appearance Clear Urine pH 6.0 (5.0-9.0) Ur Specific [place] <= 1.005 (1.005-1.025) Urine Protein Negative (Neg-Trace) mg/dL Urine Glucose (UA) Negative (Negative) mg/dL Abdomen CT scan report/results: image reviewed CT scan - pelvis: image reviewed Assessment and Plan (1) Meckel's diverticulitis: Status: Acute (2) Intra-abdominal abscess: Status: Acute Plan 48-year-old male patient presenting with complaints of severe abdominal pain found on exam to be diffusely tender. Laboratories revealed an elevated WBC and CT abdomen and pelvis revealed evidence of a perforated Meckel's diverticulum. I reviewed the findings in detail with the patient and his recommended a laparoscopic or possible open Meckel's diverticulectomy with drainage of the abscess and possible bowel resection. After discussion of the procedure, risks, and alternatives, he consents to the surgery. He has been added onto the operative schedule for today. Quality Stroke Does the patient have a stroke diagnosis?: No VTE Prior VTE?: No VTE Risk Level:: Surgical - moderate VTE Device Contraindication: N/A - Device Ordered VTE Drug Contraindication: Treatment Not Indicated Procedures Date of Service Date of Service: 04/30/24
--- NOTE | 2024-04-30 15:23 | PHA.MEDREC ---
Addendum entered by Ronnie Sanchez [facility] 04/30/24 15:40: MED REC DOUBLE CHECKED BY [facility] Original Note: Pharmacy Consult ? Medication Reconciliation Pharmacy has completed the medication reconciliation. Spoke to patient to confirm med list. Patient states he should be on Gabapentin 300 mg at bedtime, however he hasn't been taking them in 2 weeks because of the way he was feeling. He isn't sure if the Dr will continue.
--- NOTE | 2024-04-30 15:26 | PC.NURSE ---
pt's wedding ring sent home w .
--- NOTE | 2024-04-30 15:31 | PHA.MEDREC ---
Pharmacy Consult ? Medication Reconciliation Pharmacy has completed the medication reconciliation.
--- NOTE | 2024-04-30 15:45 | PC.NURSE ---
Patient arrived from ED with #20 PRN angio right AC. Site asymptomatic, flushed well.
--- NOTE | 2024-04-30 16:33 | P.CONAN_ITS ---
[facility] Active Problems Active Problems: All Active Problems (Updated 04/30/24 @ 14:53 by Henri Hamilton) Perforated Meckel's diverticulum (Acute) Intra-abdominal abscess (Acute) Meckel's diverticulitis (Acute) SOB (shortness of breath) on exertion (Acute) Family History Family History Father Heart valve replaced CAD (coronary artery disease) Mother CAD (coronary artery disease) Family history of problems with anesthesia: No Surgical History Surgical History (Updated 04/30/24 @ 15:32 by Kerry Corcoran RN) Hx of tonsillectomy S/P cardiac cath Hx of hernia repair Social History Social History Alcohol intake: current Alcohol intake frequency: holidays/special occasions only Patient Tobacco Use Status: Never used Tobacco Smoked in Last 30 Days: No Use of substances other than those prescribed or required for medical reasons: No Are you DNR?: No Advance Directives: No Advance Directives Information Provided: No Nutrition Risks: No Nutritional Risk Meds Allergies Allergy/AdvReac Type Severity Reaction Status Date / Time phenytoin [From Dilantin] Allergy Severe Anaphylaxis Verified 04/30/24 15:32 Home Medications ?Medication ?Instructions ?Recorded ?Confirmed ?Last Taken ?Type montelukast 10 mg tablet 10 mg PO BEDTIME 09/26/22 04/30/24 04/29/24 History (Singulair) amitriptyline 75 mg tablet 75 mg PO BEDTIME 04/30/24 04/30/24 04/29/24 History ascorbic acid (vitamin C) 500 mg 500 mg PO DAILY 04/30/24 04/30/24 04/30/24 History tablet (Vitamin C) cholecalciferol (vitamin D3) 10 10 mcg PO DAILY 04/30/24 04/30/24 04/30/24 History mcg (400 unit) tablet (Vitamin D3) cyanocobalamin (vitamin B-12) 50 50 mcg PO DAILY 04/30/24 04/30/24 04/30/24 History mcg tablet (Vitamin B-12) metoprolol succinate 50 mg 50 mg PO BEDTIME 04/30/24 04/30/24 04/29/24 History tablet,extended release 24 hr multivitamin 1 tab PO DAILY 04/30/24 04/30/24 04/29/24 History sertraline 25 mg tablet 25 mg PO BEDTIME 04/30/24 04/30/24 04/29/24 History zinc acetate 25 mg (zinc) capsule 25 mg PO DAILY 04/30/24 04/30/24 04/29/24 History Exam Height,Weight and Vital Signs: Height 5 ft 4 in Weight 78.018 kg Last Vital Signs Temp 100.7 F H 04/30/24 15:34 Pulse 90 04/30/24 15:34 Resp 16 04/30/24 15:34 BP 113/57 L 04/30/24 15:34 Pulse Ox 100 04/30/24 15:34 O2 Del Method Room Air 04/30/24 15:34 Pertinent Lab Results Pertinent Lab Results: iLaboratory Tests 04/30/24 10:54 WBC 13.9 H RBC 4.85 Hgb 14.3 Hct 40.2 L MCV 82.9 MCH 29.5 MCHC 35.6 RDW 12.6 Plt Count 223 MPV 10.1 Immature Gran % (Auto) 0.3 Neut % (Auto) 83.7 H Lymph % (Auto) 6.5 L [place] % (Auto) 9.2 Eos % (Auto) 0.1 Baso % (Auto) 0.2 Lymph # (Auto) 0.9 L [place] # (Auto) 1.3 H Eos # (Auto) 0.0 Baso # (Auto) 0.0 Abs Immat Gran (auto) 0.04 H Absolute Neuts (auto) 11.6 H Absolute Nucleated RBC 0.000 Nucleated RBC % (auto) 0.0 Sodium 139 Potassium 4.3 Chloride 104 Carbon Dioxide 28 Anion Gap 11 L BUN 10 Creatinine 0.88 Estim Creat Clear Calc 94.7 Estimated GFR > 60 Random Glucose 95 Calcium 9.9 D Total Bilirubin 0.7 Direct Bilirubin 0.2 AST 16 ALT 34 Alkaline Phosphatase 86 Total Protein 7.0 Albumin 4.5 Lipase 20 Urine Color Yellow Urine Appearance Clear Urine pH 6.0 Ur Specific [place] <= 1.005 Urine Protein Negative Urine Glucose (UA) Negative Urine Ketones Negative Urine Blood Negative Urine Nitrite Negative Ur Leukocyte Esterase Trace H Urine RBC 0-2 Urine WBC 0-5 Ur Squamous Epith Cells 0-2 Urine Bacteria None Seen Hyaline Casts 0-2 Airway Mallampati Class: III TM Dist: >3cm Neck ROM: Full Assessment and Plan Assessment Anesthesia Assessment: Anesthesia Plan Discussed and Chart Reviewed Final Anesthetic Review Family History of Problems with Anesthesia: No NPO: Yes ASA Class: II and Emergency Final Preanesthetic Review: No Changes in Pt Med Stat, Meds/Allgs Chart Reviewed, Consent Obtained/Reviewed and Anes Risks/Benef Reviewed Patient Risk: Intermediate Procedure Risk: Intermediate Anesthetic Plan Anesthetic Plan: GA Disposition: Standard PACU
--- NOTE | 2024-04-30 17:02 | P.OP_ITS ---
Operative Note Operative Note Date of Service: 04/30/24 Narrative: Preoperative diagnosis: Meckel's diverticulitis with abscess Postoperative diagnosis: Same Procedure: Laparoscopic Meckel's diverticulectomy, drainage of abscess Surgeon: Bhaskar Poole MD, Yoshi Villanueva MD [employer] Officer: Anesthesia: General endotracheal Indications for procedure: 48-year-old male patient presenting with a 1 year history of abdominal pain increased over the past 2 days with severe upper abdominal pain found on CT to have evidence of a Meckel's diverticulitis with perforation and abscess. Operative findings: Meckel's diverticulitis with abscess located proximally 2 ft from the ileocecal valve. Specimen: Meckel's diverticulum Estimated blood loss: 5 mL Complications: None Procedure details: Patient was brought to the OR and placed in a supine position. After administering general anesthesia the patient's abdomen was prepped with ChloraPrep and draped in a sterile fashion. A surgical time-out was called the consent confirmed. Patient received preoperative antibiotics and Venodyne boots were in place. Local anesthesia consisting of 0.5% Sensorcaine was infiltrated in the supraumbilical location. A 5 mm incision was then made with a scalpel and carried out through subcutaneous tissue. A Veress needle was then inserted while elevating the abdominal cavity with towel clips. After positive drop test the abdomen was insufflated to a pressure 15 mmHg. The Jaci ess needle was removed and a 5 mm trocar placed under direct vision. The abdomen was then explored with the 5 mm 0 degree camera. A 5 mm trocar was placed in the lower midline and a 12 mm trocar placed in the left lower quadrant. The patient was then placed in a Trendelenburg position and rotated to the left. The cecum was identified and a normal appendix noted. Ileocecal valve was then identified and appeared normal. The distal ileum was then sequentially examined up until a proximally the 2 ft region were a stuck loop of small bowel was noted with an inflammatory reaction. This was gently and a Meckel's diverticulum identified wrapped around the mesentery of several loops of small bowel. This was carefully dissected from the mesentery using LigaSure. The neck of the diverticulum was found to be soft and noninfected. A Endo-ROSALES 45 stapler purple was then used to divide the Meckel's diverticulum in a transverse fashion to avoid narrowing the lumen of the small bowel. The diverticulum was then placed in Endo-Catch bag and brought out through the left lower quadrant incision. The abdomen was then thoroughly irrigated with saline solution and suctioned dry. Wounds were checked for hemostasis. The CO2 was then evacuated from the abdominal cavity and all trocars removed. Fascia was closed in the left lower quadrant incision using a [id number] 0 Polysorb suture. Skin was closed in all incisions using a subcuticular 4-0 Polysorb suture in an interrupted fashion. Steri-Strips, 2 x 2 gauze and Tegaderm were then applied. The patient tolerated the procedure well. Sponge, instrument, and needle counts reported as correct. The patient was transferred to PACU in stable condition.
[2024-04-30] MEDS: HYDROmorphone HCl 0.5 MG/0.5 ML SYRINGE IVPUSH ×3 (17:19→20:46)
[2024-04-30] MEDS: Piperacillin Sodium/Tazobactam 3.375 GM in 0.9 % Sodium Chloride 50 ML IV (20:13)
[2024-04-30] MEDS: Dextrose 5 % and Lactated Ring 1,000 ML 125 ML IVCONT (20:14)
[2024-04-30] MEDS: Amitriptyline HCl 25 MG TABLET 75 MG PO (20:29)
[2024-04-30] MEDS: Metoprolol Succinate ER 50 MG TAB.ER.24H PO (20:30)
[2024-04-30] MEDS: Sertraline HCL 25 MG TABLET PO (20:30)
[2024-04-30] MEDS: Montelukast Sodium 10 MG TABLET PO (20:30)
[2024-05-01] VITALS (7 sets, daily range): BP systolic 90–115; BP diastolic 52–56; PULSE 80–89; RESP 16–18; TEMP 36.8–37.3; O2SAT 94–96; BMI 30.1
[2024-05-01] MEDS: HYDROmorphone HCl 0.5 MG/0.5 ML SYRINGE IVPUSH ×4 (01:40→20:36)
[2024-05-01] MEDS: Piperacillin Sodium/Tazobactam 3.375 GM in 0.9 % Sodium Chloride 50 ML IV ×4 (01:45→20:31)
[2024-05-01] MEDS: Dextrose 5 % and Lactated Ring 1,000 ML 125 ML IVCONT ×2 (04:38→13:41)
[2024-05-01 05:42] LABS: Hematocrit 33.9 % (42.0-52.0); Hemoglobin 12.2 g/dl (14.0-18.0); Mean Corpuscular Hemoglobin 29.5 pg (27.0-33.0); Mean Corpuscular Volume 82.1 fL (80.0-98.0); Mean Platelet Volume 10.1 fL (9.4-12.4); Platelet Count 191 X10*3/uL (160-400); Red Blood Count 4.13 X10*6/uL (4.60-5.80); Red Cell Distribution Width 12.6 % (11.0-16.0); White Blood Count 12.3 X10*3/uL (4.8-10.8)
--- NOTE | 2024-05-01 08:00 | P.PNGS_ITS ---
Subjective Subjective Date of Service: 05/01/24 Interval history: The patient has some incisional pain otherwise feels improved this morning. He tolerated clear liquids and would like to try solid food. Physical Exam 2 Vital Signs: Vital Signs: Last Vital Signs Temp 98.4 F 05/01/24 03:12 Pulse 89 05/01/24 03:12 Resp 18 05/01/24 03:12 BP 97/55 L 05/01/24 03:12 Pulse Ox 96 05/01/24 03:12 O2 Del Method Room Air 05/01/24 03:12 O2 Flow Rate 2 04/30/24 18:40 BMI result Body Mass Index 30.1 Const: General: no acute distress Nutritional Appearance: well nourished Orientation/consciousness: patient oriented x3 Limitations: no limitations Resp: Effort & Inspection: normal respiratory effort GI: Other: Trocar incisions are clean, dry, and intact without redness or discharge Neuro: General: patient oriented x3 Extrem: General: Yes normal to inspection Objective Data Active Medications Acetaminophen (Acetaminophen 325 Mg Tablet) 975 mg PO Q6H PRN PRN Reason: Pain, Mild (Pain Scale 1-3) Amitriptyline HCl (Amitriptyline Hcl 25 Mg Tablet) 75 mg PO BEDTIME [facility] Last Admin: 04/30/24 20:29 Dose: 75 mg Documented By: MARISOL Hydromorphone HCl (Hydromorphone Hcl 0.5 Mg/0.5 Ml Syringe) 0.5 mg IVPUSH Q3H PRN; Protocol PRN Reason: Pain, Severe (Pain Scale 7-10) Last Admin: 05/01/24 07:25 Dose: 0.5 mg Documented By: ISABEL Dextrose/Lactated Ringer's (D5lr) 1,000 mls @ 125 mls/hr IVCONT .Q8H [facility] Last Admin: 05/01/24 04:38 Dose: 125 mls/hr Documented By: MARISOL Piperacillin Sod/Tazobactam (Sod 3.375 gm/ Sodium Chloride) 50 mls @ 100 mls/hr IV Q6H [facility] Last Infusion: 05/01/24 07:59 Dose: Infused Documented By: ISABEL Metoprolol Succinate (Metoprolol Succinate Er 50 Mg Tab.Er.24h) 50 mg PO BEDTIME [facility]; Protocol Last Admin: 04/30/24 20:30 Dose: 50 mg Documented By: MARISOL Montelukast Sodium (Montelukast Sodium 10 Mg Tablet) 10 mg PO BEDTIME [facility] Last Admin: 04/30/24 20:30 Dose: 10 mg Documented By: MARISOL Ondansetron HCl (Ondansetron Hcl 4 Mg/2 Ml Vial) 4 mg IVPUSH QID PRN PRN Reason: Nausea Oxycodone HCl (Oxycodone Hcl Immed Release 5 Mg Tablet) 5 mg PO Q6H PRN PRN Reason: Pain, Moderate(Pain Scale 4-6) Sertraline HCl (Sertraline Hcl 25 Mg Tablet) 25 mg PO BEDTIME [facility] Last Admin: 04/30/24 20:30 Dose: 25 mg Documented By: MARISOL Labs 05/01/24 05:25 04/30/24 10:54 Labs: Laboratory Results - last 24 hr 04/30/24 05/01/24 10:54 05:25 MCV 82.9 82.1 MCH 29.5 29.5 MCHC 35.6 36.0 RDW 12.6 12.6 Plt Count 223 191 MPV 10.1 10.1 Immature Gran % (Auto) 0.3 Neut % (Auto) 83.7 H Lymph % (Auto) 6.5 L [place] % (Auto) 9.2 Eos % (Auto) 0.1 Baso % (Auto) 0.2 Lymph # (Auto) 0.9 L [place] # (Auto) 1.3 H Eos # (Auto) 0.0 Baso # (Auto) 0.0 Abs Immat Gran (auto) 0.04 H Absolute Neuts (auto) 11.6 H Absolute Nucleated RBC 0.000 0.000 Nucleated RBC % (auto) 0.0 0.0 Anion Gap 11 L Estim Creat Clear Calc 94.7 Estimated GFR > 60 Random Glucose 95 Calcium 9.9 D Total Bilirubin 0.7 Direct Bilirubin 0.2 AST 16 ALT 34 Alkaline Phosphatase 86 Total Protein 7.0 Albumin 4.5 Lipase 20 Urine Color Yellow Urine Appearance Clear Urine pH 6.0 Ur Specific [place] <= 1.005 Urine Protein Negative Urine Glucose (UA) Negative Urine Ketones Negative Urine Blood Negative Urine Nitrite Negative Ur Leukocyte Esterase Trace H Urine RBC 0-2 Urine WBC 0-5 Ur Squamous Epith Cells 0-2 Urine Bacteria None Seen Hyaline Casts 0-2 Procedures Date of Service Date of Service: 05/01/24 Progress Note: A&P Assessment and plan (1) Perforated Meckel's diverticulum: Status: Acute Plan Pod 1 following laparoscopic Meckel's diverticulectomy and drainage of abscess. We will continue IV antibiotics due to the abscess. Advance his diet to regular this morning. Encouraged out of bed and ambulation, incentive spirometry. Time Spent With Patient Time: Total time managing care of this patient today ____ minutes. Quality Stroke Does the patient have a stroke diagnosis?: No VTE Prior VTE?: No VTE Risk Level:: Surgical - moderate VTE Device Contraindication: N/A - Device Ordered VTE Drug Contraindication: Treatment Not Indicated
--- NOTE | 2024-05-01 08:06 | HO.POSTANES ---
Post Anesthesia Evaluation Post Anesthesia Evaluation Date of Service: 05/01/24 Vital Signs: Vital Signs Temp Pulse Resp BP Pulse Ox O2 Del Method 05/01/24 07:59 99.1 F 81 16 90/52 L 94 Room Air 05/01/24 03:12 98.4 F 89 18 97/55 L 96 Room Air 05/01/24 00:11 98.9 F 87 18 101/56 L 96 Room Air 04/30/24 20:30 77 Anesthesia: General Endotracheal-GETA Mental Status: Awake Pain Control: Satisfactory Nausea/Vomiting: None Hydration: Adequate Anesthesia-Related Issues: No Anes. Related Issues
--- NOTE | 2024-05-01 09:08 | MHC.CM.PN ---
CM MET WITH PT AT BEDSIDE. PT LIVES WITH SPOUSE AND CHILDREN. PT INDEPENDENT AND SELF EMPLOYED. +HCP AT HOME, COPY REQUESTED. PCP DR. Guicho MARINO. DP: HOME, NO SERVICES ANTICIPATED. SPOUSE WILL TRANSPORT HOME. CM WILL CONTINUE TO FOLLOW FOR ANY CHANGE TO DC PLAN/NEEDS.
--- NOTE | 2024-05-01 14:19 | P.CONHOSP_ITS ---
History of Present Illness Data of Consult Service Date: 05/01/24 Primary Care Provider: George Gonzales MD [facility] Reason for consult: Bilateral forearm edema This is a 48-year-old male with pertinent history of mood disorder who was admitted by general surgery on 04/30 for intra-abdominal abscess in the setting of perforated Meckel's diverticulum. Patient underwent laparoscopic Meckel's diverticulectomy and drainage of abscess on 04/30. Patient is on IV Zosyn. Patient developed bilateral edema to arms on the day of presentation and hospital medicine team consulted. Patient states he initially did not notice and his told that his forearms have swollen. Denies pain or itching. Patient has been on IV Zosyn for the last 2 days and received penicillin in the past. No chest pain, shortness of breath. Review of Systems 2 Constitutional: Constitutional: Reports fatigue Cardiovascular: Cardiovascular: Reports no additional cardiovascular complaints Respiratory: Respiratory: Reports no additional respiratory complaints Endocrine: Endocrine: Reports fatigue PMFSH Family History Father Heart valve replaced CAD (coronary artery disease) Mother CAD (coronary artery disease) Surgical History Hx of tonsillectomy S/P cardiac cath Hx of hernia repair Social History Household Members: Spouse Housing: House Do you presently have visiting nurse or other home services: No Alcohol intake: current Alcohol intake frequency: holidays/special occasions only Patient Tobacco Use Status: Never used Tobacco Smoked in Last 30 Days: No e-Cigarette/Vaping Use: Never Used Use of substances other than those prescribed or required for medical reasons: No Currently Displaying Signs/Symptoms of Drug Intoxication Withdrawal: No Have you been hit, kicked, punched, or otherwise hurt by someone within the past year? If so, by whom?: No Do you feel safe in your current relationship?: Yes Is there a partner from a previous relationship who is making you feel unsafe now?: No Are you made to feel afraid or neglected: No Are you DNR?: No Advance Directives: No Advance Directives Information Provided: No Do you have a plan to hurt others: No Plan Recently lost weight without trying: No Eating poorly because of decreased appetite: No Nutrition Risks: No Nutritional Risk Poor oral hygiene: No service: No Meds Allergies Allergy/AdvReac Type Severity Reaction Status Date / Time phenytoin [From Dilantin] Allergy Severe Anaphylaxis Verified 04/30/24 15:32 Active Medications: Current Medications Acetaminophen (Acetaminophen 325 Mg Tablet) 975 mg PO Q6H PRN PRN Reason: Pain, Mild (Pain Scale 1-3) Amitriptyline HCl (Amitriptyline Hcl 25 Mg Tablet) 75 mg PO BEDTIME [facility] Last Admin: 04/30/24 20:29 Dose: 75 mg Hydromorphone HCl (Hydromorphone Hcl 0.5 Mg/0.5 Ml Syringe) 0.5 mg IVPUSH Q3H PRN; Protocol PRN Reason: Pain, Severe (Pain Scale 7-10) Last Admin: 05/01/24 07:25 Dose: 0.5 mg Dextrose/Lactated Ringer's (D5lr) 1,000 mls @ 125 mls/hr IVCONT .Q8H [facility] Last Admin: 05/01/24 13:41 Dose: 125 mls/hr Piperacillin Sod/Tazobactam (Sod 3.375 gm/ Sodium Chloride) 50 mls @ 100 mls/hr IV Q6H [facility] Last Infusion: 05/01/24 07:59 Dose: Infused Metoprolol Succinate (Metoprolol Succinate Er 50 Mg Tab.Er.24h) 50 mg PO BEDTIME [facility]; Protocol Last Admin: 04/30/24 20:30 Dose: 50 mg Montelukast Sodium (Montelukast Sodium 10 Mg Tablet) 10 mg PO BEDTIME [facility] Last Admin: 04/30/24 20:30 Dose: 10 mg Ondansetron HCl (Ondansetron Hcl 4 Mg/2 Ml Vial) 4 mg IVPUSH QID PRN PRN Reason: Nausea Oxycodone HCl (Oxycodone Hcl Immed Release 5 Mg Tablet) 5 mg PO Q6H PRN PRN Reason: Pain, Moderate(Pain Scale 4-6) Sertraline HCl (Sertraline Hcl 25 Mg Tablet) 25 mg PO BEDTIME [facility] Last Admin: 04/30/24 20:30 Dose: 25 mg Home Medications ?Medication ?Instructions ?Recorded ?Confirmed ?Last Taken ?Type montelukast 10 mg tablet 10 mg PO BEDTIME 09/26/22 04/30/24 04/29/24 History (Singulair) amitriptyline 75 mg tablet 75 mg PO BEDTIME 04/30/24 04/30/24 04/29/24 History ascorbic acid (vitamin C) 500 mg 500 mg PO DAILY 04/30/24 04/30/24 04/30/24 History tablet (Vitamin C) cholecalciferol (vitamin D3) 10 10 mcg PO DAILY 04/30/24 04/30/24 04/30/24 History mcg (400 unit) tablet (Vitamin D3) cyanocobalamin (vitamin B-12) 50 50 mcg PO DAILY 04/30/24 04/30/24 04/30/24 History mcg tablet (Vitamin B-12) metoprolol succinate 50 mg 50 mg PO BEDTIME 04/30/24 04/30/24 04/29/24 History tablet,extended release 24 hr multivitamin 1 tab PO DAILY 04/30/24 04/30/24 04/29/24 History sertraline 25 mg tablet 25 mg PO BEDTIME 04/30/24 04/30/24 04/29/24 History zinc acetate 25 mg (zinc) capsule 25 mg PO DAILY 04/30/24 04/30/24 04/29/24 History Physical Exam 2 Vital Signs and Narrative: Vital Signs: Last Vital Signs Temp 98.6 F 05/01/24 13:48 Pulse 80 05/01/24 13:48 Resp 18 05/01/24 13:48 BP 97/54 L 05/01/24 13:48 Pulse Ox 95 05/01/24 13:48 O2 Del Method Room Air 05/01/24 13:48 O2 Flow Rate 2 04/30/24 18:40 BMI result Body Mass Index 30.1 Middle-aged male lying in bed in no distress Neck supple, no JVD Regular rate and rhythm, S1-S2 heard Regular breath sounds bilaterally, no wheezing or crackles appreciated Abdomen soft nontender, no guarding, no rigidity Patient is awake, alert and oriented to self, place, time and person ; no focal motor deficit Psych: Normal mood Bilateral forearm with mild erythema and swelling present, warm to touch Results Labs 05/01/24 05:25 04/30/24 10:54 Labs: Laboratory Results - last 24 hr 05/01/24 05:25 MCV 82.1 MCH 29.5 MCHC 36.0 RDW 12.6 Plt Count 191 MPV 10.1 Absolute Nucleated RBC 0.000 Nucleated RBC % (auto) 0.0 Imaging Radiologist's Impressions: Impressions Abdomen/Pelvis CT 04/30/24 12:36 IMPRESSION: Extensive inflammatory changes in the right lower quadrant with a loop of small bowel terminating in a rim-enhancing collection containing gas/abscess measuring 1.9 x 2.2 x 2.6 cm. Consideration may be given to a perforated Meckel's diverticulum with abscess formation. Surgical consultation is advised. Hepatomegaly and hepatic steatosis. Findings were reviewed and discussed with BONITA Wagner at 2:00 PM on 04/30/2024. Assessment and Plan (1) Localized swelling of both forearms: Status: Acute Plan Plan: Conservative management with warm compresses. No concern for cellulitis. No concern for allergy to Zosyn, may continue. Will discontinue IV fluids. Will sign off. Thank you for the consult. Please reconsult if needed.
[2024-05-01] MEDS: diphenhydrAMINE HCL 50 MG/ML VIAL 25 MG IVPUSH (14:38)
[2024-05-01] MEDS: Montelukast Sodium 10 MG TABLET PO (20:36)
[2024-05-01] MEDS: Amitriptyline HCl 25 MG TABLET 75 MG PO (20:36)
[2024-05-01] MEDS: Sertraline HCL 25 MG TABLET PO (20:36)
[2024-05-02] MEDS: Piperacillin Sodium/Tazobactam 3.375 GM in 0.9 % Sodium Chloride 50 ML IV ×4 (02:29→19:48)
[2024-05-02 03:59] VITALS: BP 92/55; PULSE 74; RESP 15; TEMP 36.6; O2SAT 96
[2024-05-02] MEDS: oxyCODONE HCl Immed Release 5 MG TABLET PO ×3 (05:33→19:50)
[2024-05-02 07:48] VITALS: BP 107/59; PULSE 76; RESP 16; TEMP 36.9; O2SAT 95
--- NOTE | 2024-05-02 08:28 | PM.PNGS ---
Subjective Subjective Date of Service: 05/02/24 Interval history: Reports some abdominal pain which increased after eating solid food. Did better with liquids during the night. Denies any nausea or vomiting. He is passing flatus but denies a bowel movement. Physical Exam Vital Signs: Vital Signs: Last Vital Signs Temp 98.5 F 05/02/24 07:48 Pulse 76 05/02/24 07:48 Resp 16 05/02/24 07:48 BP 107/59 L 05/02/24 07:48 Pulse Ox 95 05/02/24 07:48 O2 Del Method Room Air 05/02/24 07:48 O2 Flow Rate 2 04/30/24 18:40 BMI result Body Mass Index 30.1 Const: General: no acute distress Nutritional Appearance: well nourished Orientation/consciousness: patient oriented x3 Limitations: no limitations Resp: Effort & Inspection: normal respiratory effort GI: Other: Trocar incisions are clean, dry, and intact without redness or discharge Neuro: General: patient oriented x3 Extrem: General: Yes normal to inspection Objective Data Active Medications Acetaminophen (Acetaminophen 325 Mg Tablet) 975 mg PO Q6H PRN PRN Reason: Pain, Mild (Pain Scale 1-3) Amitriptyline HCl (Amitriptyline Hcl 25 Mg Tablet) 75 mg PO BEDTIME [facility] Last Admin: 05/01/24 20:36 Dose: 75 mg Documented By: MARISOL Hydromorphone HCl (Hydromorphone Hcl 0.5 Mg/0.5 Ml Syringe) 0.5 mg IVPUSH Q3H PRN; Protocol PRN Reason: Pain, Severe (Pain Scale 7-10) Last Admin: 05/01/24 20:36 Dose: 0.5 mg Documented By: MARISOL Piperacillin Sod/Tazobactam (Sod 3.375 gm/ Sodium Chloride) 50 mls @ 100 mls/hr IV Q6H [facility] Last Admin: 05/02/24 08:15 Dose: 100 mls/hr Documented By: ISABEL Montelukast Sodium (Montelukast Sodium 10 Mg Tablet) 10 mg PO BEDTIME [facility] Last Admin: 05/01/24 20:36 Dose: 10 mg Documented By: MARISOL Ondansetron HCl (Ondansetron Hcl 4 Mg/2 Ml Vial) 4 mg IVPUSH QID PRN PRN Reason: Nausea Oxycodone HCl (Oxycodone Hcl Immed Release 5 Mg Tablet) 5 mg PO Q6H PRN PRN Reason: Pain, Moderate(Pain Scale 4-6) Last Admin: 05/02/24 05:33 Dose: 5 mg Documented By: MARISOL Sertraline HCl (Sertraline Hcl 25 Mg Tablet) 25 mg PO BEDTIME [facility] Last Admin: 05/01/24 20:36 Dose: 25 mg Documented By: MARISOL Labs 05/01/24 05:25 04/30/24 10:54 Procedures Date of Service Date of Service: 05/02/24 Progress Note: A&P Assessment and plan (1) Perforated Meckel's diverticulum: Status: Acute (2) Intra-abdominal abscess: Status: Acute Plan Pod 2 following laparoscopic Meckel's diverticulectomy. Wounds are clean, dry, and intact. Abdomen is moderately distended but not tympanitic. Patient is passing flatus but no bowel movement yet. We will continue with a soft diet today. Await return of bowel function prior to discharge. Continue IV antibiotic. Plan to switch to oral upon discharge. Time Spent With Patient Time: Total time managing care of this patient today ____ minutes. Quality Stroke Does the patient have a stroke diagnosis?: No VTE Prior VTE?: No VTE Risk Level:: Surgical - moderate VTE Device Contraindication: N/A - Device Ordered VTE Drug Contraindication: Treatment Not Indicated
[2024-05-02] MEDS: Acetaminophen 325 MG TABLET 975 MG PO ×2 (11:53→19:52)
[2024-05-02 15:24] VITALS: O2SAT 95
--- NOTE | 2024-05-02 15:53 | MHC.CM.PN ---
per rounds no dc at this time dc plan remains home no servies
[2024-05-02 16:00] VITALS: BP 104/60; PULSE 80; RESP 16; TEMP 37.2; O2SAT 97
[2024-05-02 19:17] VITALS: BP 116/66; PULSE 84; RESP 18; TEMP 36.4; O2SAT 97
[2024-05-02] MEDS: Sertraline HCL 25 MG TABLET PO (19:50)
[2024-05-02] MEDS: Amitriptyline HCl 25 MG TABLET 75 MG PO (19:50)
[2024-05-02] MEDS: Montelukast Sodium 10 MG TABLET PO (19:50)
[2024-05-03] MEDS: Piperacillin Sodium/Tazobactam 3.375 GM in 0.9 % Sodium Chloride 50 ML IV ×2 (00:13→06:41)
[2024-05-03 04:00] VITALS: BP 128/75; PULSE 68; RESP 18; TEMP 36.5; O2SAT 98
[2024-05-03 07:56] VITALS: BP 121/73; PULSE 81; RESP 18; TEMP 36.4; O2SAT 96
[2024-05-03] MEDS: Acetaminophen 325 MG TABLET 975 MG PO (08:54)
--- NOTE | 2024-05-03 09:44 | PM.PNGS ---
Subjective Subjective Date of Service: 05/03/24 Interval history: Feels well this morning Tolerating diet No nausea or vomiting Passing flatus and had a BM Physical Exam Vital Signs: Vital Signs: Last Vital Signs Temp 97.5 F 05/03/24 07:56 Pulse 81 05/03/24 07:56 Resp 18 05/03/24 07:56 BP 121/73 05/03/24 07:56 Pulse Ox 96 05/03/24 07:56 O2 Del Method Room Air 05/03/24 07:56 O2 Flow Rate 2 04/30/24 18:40 BMI result Body Mass Index 30.1 Const: Other: Looks well General: comfortable and no acute distress Resp: Effort & Inspection: normal respiratory effort Cardio: Rate: regular rate GI: Other: Incisions clean and dry Palpation (GI): Soft to palpation, not firm, nontender and no guarding Objective Data Active Medications Acetaminophen (Acetaminophen 325 Mg Tablet) 975 mg PO Q6H PRN PRN Reason: Pain, Mild (Pain Scale 1-3) Last Admin: 05/03/24 08:54 Dose: 975 mg Documented By: CASEY Amitriptyline HCl (Amitriptyline Hcl 25 Mg Tablet) 75 mg PO BEDTIME [facility] Last Admin: 05/02/24 19:50 Dose: 75 mg Documented By: RADHA Hydromorphone HCl (Hydromorphone Hcl 0.5 Mg/0.5 Ml Syringe) 0.5 mg IVPUSH Q3H PRN; Protocol PRN Reason: Pain, Severe (Pain Scale 7-10) Last Admin: 05/01/24 20:36 Dose: 0.5 mg Documented By: MARISOL Piperacillin Sod/Tazobactam (Sod 3.375 gm/ Sodium Chloride) 50 mls @ 100 mls/hr IV Q6H [facility] Last Infusion: 05/03/24 07:11 Dose: Infused Documented By: RADHA Montelukast Sodium (Montelukast Sodium 10 Mg Tablet) 10 mg PO BEDTIME [facility] Last Admin: 05/02/24 19:50 Dose: 10 mg Documented By: RADHA Ondansetron HCl (Ondansetron Hcl 4 Mg/2 Ml Vial) 4 mg IVPUSH QID PRN PRN Reason: Nausea Oxycodone HCl (Oxycodone Hcl Immed Release 5 Mg Tablet) 5 mg PO Q6H PRN PRN Reason: Pain, Moderate(Pain Scale 4-6) Last Admin: 05/02/24 19:50 Dose: 5 mg Documented By: RADHA Sertraline HCl (Sertraline Hcl 25 Mg Tablet) 25 mg PO BEDTIME [facility] Last Admin: 05/02/24 19:50 Dose: 25 mg Documented By: RADHA Labs 05/01/24 05:25 04/30/24 10:54 Procedures Date of Service Date of Service: 05/03/24 Progress Note: A&P Assessment and plan (1) Meckel's diverticulitis: Status: Acute Assessment and Plan: s/p diverticulectomy doing very well good GI functions incisions clean looks well ok to dc home dc instructions reinforced with patient Time Spent With Patient Time: Total time managing care of this patient today ____ minutes. Quality Stroke Does the patient have a stroke diagnosis?: No VTE Prior VTE?: No VTE Risk Level:: Surgical - moderate VTE Device Contraindication: N/A - Device Ordered VTE Drug Contraindication: Treatment Not Indicated
--- NOTE | 2024-05-03 10:58 | MHC.CM.PN ---
PT WILL DC HOME TODAY WITH NO SERVICES VIA PRIVATE TRANSPORT
--- NOTE | 2024-05-06 07:23 | P.DS_ITS ---
DS: Providers Provider Date of Service: 05/06/24 Date of admission: 04/30/24 15:04 Date of discharge: 05/03/24 Primary care physician: George Gonzales MD Admitting clinician: Bhaskar Poole Consults: 05/01/24 13:51 Consult to Hospitalist Routine Comment: Consulting Provider: Hospitalist Reason For Exam: edema to bilat arms / warm to touch Attending physician on discharge: Bhaskar Poole DS: Diagnosis Discharge Diagnosis (1) Meckel's diverticulitis: Status: Acute DS: Summary Hospital Course Hospital Course: Andrew Regalado is a 48 year old male presenting with complaints of abdominal pain mainly in the right upper quadrant for the past 2 days. The pain actually began approximately 1 year ago and was intermittent in nature but would resolved spontaneously. Current episode was much more severe and persistent, associated with nausea without vomiting. He reports loose stool but denies diarrhea or constipation. He felt feverish but denied chills. 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 He has undergone previous orthopedic surgery, tonsillectomy and inguinal hernia repair. He denies previous abdominal surgery. Examination the patient is found to have tenderness in the right upper quadrant and right lower quadrant without rebound, guarding or rigidity. His abdomen is somewhat distended as well. Workup with CT abdomen and pelvis revealed what appears to be a Meckel's diverticulum with abscess formation. After discussion of the procedure, risks and alternatives, he was taken to the OR for laparoscopic Meckel's diverticulectomy. Operative findings were consistent with a Meckel's diverticulum with abscess formation. She underwent a stapled diverticulectomy. Postoperatively he remained hemodynamically stable. He was started on clear liquids and advanced over the next 2 days to a regular diet. He was able to tolerate the regular diet and by 05/03/2024 was discharged to home. Discharge instructions were to avoid lifting greater than 10 lb. He may resume a regular diet. He will follow up in the office in approximately 1 week. He should return to the ED for fever, chills, nausea, vomiting, or increased abdominal pain. Time spent discussing smoking cessation with patient: 3 to 10 minutes Status at Discharge Functional status at discharge: independent ambulation Overall status at discharge: patient is not back to baseline Time Attestation Discharge Coordination Time (in mins): 20 Quality: Safe Use of Opioids Does Pt have an Active Cancer Diagnosis on the Problem List?: No Quality: Stroke Does the patient have a stroke diagnosis?: No Physical Exam Vital Signs: Vital Signs: Last Vital Signs Temp 97.5 F 05/03/24 07:56 Pulse 81 05/03/24 07:56 Resp 18 05/03/24 07:56 BP 121/73 05/03/24 07:56 Pulse Ox 96 05/03/24 07:56 O2 Del Method Room Air 05/03/24 07:56 O2 Flow Rate 2 04/30/24 18:40 BMI result Body Mass Index 30.1 Const: Other: Looks well General: comfortable and no acute distress Resp: Effort & Inspection: normal respiratory effort Cardio: Rate: regular rate GI: Other: Incisions clean and dry Palpation (GI): Soft to palpation, not firm, nontender and no guarding DS: Data Data Completed and Pending Completed studies during hospitalization [Text1]: Pending at discharge 04/30/24 16:40 Surgical [PTH] Routine Discharge Plan Discharge Anticipated Discharge Date/Time: 05/03/24 09:52 Patient Disposition: Home, Self-Care Discharge Diagnosis: Meckel's diverticulitis with abscess Referrals: George Gonzales MD [Primary Care Provider] - 1 Week Bhaskar Poole MD [Physician] - 1 Week Discharge Medications: New oxycodone-acetaminophen [Percocet] 5-325 mg tablet 1 tab PO Q4-6H PRN (Reason: pain) Qty: 10 0RF Rx Instructions: Partial Fill upon patient request. Continued amitriptyline 75 mg tablet 75 mg PO BEDTIME sertraline 25 mg tablet 25 mg PO BEDTIME multivitamin Tablet 1 tab PO DAILY zinc acetate 25 mg (zinc) Capsule 25 mg PO DAILY metoprolol succinate 50 mg tablet extended release 24 hr 50 mg PO BEDTIME Vitamin B-12 50 mcg Tablet 50 mcg PO DAILY ascorbic acid (vitamin C) [Vitamin C] 500 mg Tablet 500 mg PO DAILY cholecalciferol (vitamin D3) [Vitamin D3] 10 mcg (400 unit) Tablet 10 mcg PO DAILY montelukast [Singulair] 10 mg tablet 10 mg PO BEDTIME Discharge Orders: Discharge Order (Routine); Ordered 05/03/24 Ordered By: Yoshi Villanueva Diet: Advance to usual diet Activity on Discharge: No heavy lifting Stand Alone Forms: Patient Portal Discharge page Print Language: Frisian Activity Restrictions/Additional Instructions: No lifting > 10 pounds for 2 weeks Stay on low fat diet for 1 month No driving for one week Ice to the incision x 24 hours After 24 hours, use warm compress or heating pad on low as needed Take Tylenol Extra-strength 1-2 tabs every 6 hours as needed Oxycodone every 6-8 hours as needed for pain Colace 100 mg every day as needed for constipation Remove dressing in 3 days Follow up in office in one week (call office at [phone] for appointment). Care Plan Goals: Return to normal activity and diet after recovery Health Concerns: Intra-abdominal infection due to Meckel's diverticulitis Plan of Treatment: Laparoscopic Meckel's diverticulectomy on 05/31/2024 Assessment: Meckel's diverticulitis with abscess Discharge Date/Time: 05/03/24 10:51
== END 2024-05-03 10:51 | disposition home or self-care (01) | DRG 230 ==
LOC: HO.ED 14:53 → HO.SSS 15:01 → HO.EDOVER 15:05 → HO.S3 18:44
PROVIDERS: Admitting Provider Surgery; Emergency Provider Emergency Medicine; PCP Family Medicine; Visit Provider Surgery
PROC: 0DTJ4ZZ Resection of Appendix, Percutaneous Endoscopic Approach (ICD-10-PCS; CPT 44970; principal; 2024-04-30 15:50)
DX: Q43.0 Meckel's diverticulum (displaced) (hypertrophic) (principal); F39 Unspecified mood [affective] disorder; M79.89 Other specified soft tissue disorders; R00.0 Tachycardia, unspecified; U09.9 Post COVID-19 condition, unspecified; Z79.899 Other long term (current) drug therapy
CPT/HCPCS: 36415; 74177; 80048; 80076; 81001; 81003; 83690; 85025; 85027; 88112; 88304; 88307; 99284; J0131; J1100; J1170; J1200; J2250; J2405; J2470; J2543; J2704; J2795; J3010; Q9967

== ENCOUNTER → 2024-04-30 10:49 | Outpatient (BNV) | payer OTHER, SELFPAY | PROVIDERS: Emergency Provider Emergency Medicine; PCP Family Medicine; Visit Provider Surgery | DX: Q43.0 Meckel's diverticulum (displaced) (hypertrophic) (principal) | CPT/HCPCS: 44800; 99024; 99222 ==

== ENCOUNTER → 2024-04-30 15:04 | Outpatient (BNV) | payer OTHER, SELFPAY | PROVIDERS: Admitting Provider Surgery; Emergency Provider Emergency Medicine; PCP Family Medicine; Visit Provider Student in an Organized Health Care Education/Training Program | DX: R22.33 Localized swelling, mass and lump, upper limb, bilateral (principal) | CPT/HCPCS: 99222 ==

== ENCOUNTER 2024-05-08 14:44 | Outpatient (AMB) | payer OTHER, SELFPAY ==
--- NOTE | 2024-05-08 14:47 | A.OFFVIS_ITS ---
Vital Signs 05/08/24 14:51 Height 5 ft 4 in Weight 174 lb BMI 29.9 Respiration 16 Pulse 80 Intake Visit Reasons: Laparoscopic Meckel's diverticulectomy Intake Note: Patient is seen in office for post op assessment post Laparoscopic Meckel's diverticulectomy. Pt c/o: no concerns, healing as expected surgery: 04/30/24 Utility Technician Required: No Accompanied by: Other Relationship Allergies phenytoin [From Dilantin] Allergy (Severe, Verified 05/08/24 14:51) Anaphylaxis Medication List - Last Reconciled 05/08/24 by Bhaskar Poole MD amitriptyline 75 mg PO BEDTIME ascorbic acid (vitamin C) (Vitamin C) 500 mg PO DAILY cholecalciferol (vitamin D3) (Vitamin D3) 10 mcg PO DAILY cyanocobalamin (vitamin B-12) (Vitamin B-12) 50 mcg PO DAILY metoprolol succinate ER 50 mg PO BEDTIME montelukast (Singulair) 10 mg PO BEDTIME multivitamin 1 tab PO DAILY sertraline 25 mg PO BEDTIME zinc acetate 25 mg PO DAILY HPI Comments Details: 49-year-old male patient returning 1 week following laparoscopic Meckel's diverticulectomy performed on 04/30/2024. He generally feels improved but still has a decreased appetite. He denies nausea, vomiting, fever or chills. His bowels are normal without diarrhea or constipation. He denies any bleeding or discharge from his incisions. [facility] Surgical History (Updated 05/07/24 @ 14:30 by FERN Robin) History of surgery (04/30/24) Hx of tonsillectomy S/P cardiac cath Hx of hernia repair Family History Father Heart valve replaced CAD (coronary artery disease) Mother CAD (coronary artery disease) Social History Household Members: Spouse Housing: House Do you presently have visiting nurse or other home services: No Alcohol intake: current Alcohol intake frequency: holidays/special occasions only Patient Tobacco Use Status: Never used Tobacco e-Cigarette/Vaping Use: Never Used service: No Physical Exam Const General: healthy appearing Nutritional Appearance: well nourished Orientation/consciousness: patient oriented x3 Resp Effort & Inspection: normal respiratory effort GI Other: Trocar incisions are clean, dry, and intact without redness or discharge. No hernias noted with Valsalva maneuvers. Skin Other: Warm, dry, no rash Neuro General: patient oriented x3 Extrem General: No edema Assessment & Plan Assessment & Plan (1) Perforated Meckel's diverticulum: Code(s): Q43.0 - Meckel's diverticulum (displaced) (hypertrophic) Category: Medical Plan 49-year-old male patient status post laparoscopic Meckel's diverticulectomy on 04/30/2024. He tolerated the procedure well and his wounds are healing nicely. Should continue to avoid lifting greater than 10 lb for the next week. He may then return to normal activity without restrictions. He should follow up as needed. Coding Level of Care Code Global (91576) Diagnoses Perforated Meckel's diverticulum Q43.0
[2024-05-08 14:51] VITALS: PULSE 80; RESP 16; BMI 29.9
== END 2024-05-08 15:02 | disposition home or self-care (01) ==
PROVIDERS: PCP Family Medicine; Visit Provider Surgery
DX: Q43.0 Meckel's diverticulum (displaced) (hypertrophic) (principal)
CPT/HCPCS: 99024

== ENCOUNTER → 2024-05-08 14:44 | Outpatient (BNVA) | payer OTHER, SELFPAY | PROVIDERS: PCP Family Medicine; Visit Provider Surgery ==

== ENCOUNTER 2024-09-02 09:26 | Outpatient (REF) | payer OTHER, SELFPAY | END 2024-09-02 09:27 | disposition home or self-care (01) | LOC: HO.US 09:26 | PROVIDERS: PCP Family Medicine; Visit Provider Internal Medicine | DX: R10.11 Right upper quadrant pain (principal) | CPT/HCPCS: 76700 ==

== ENCOUNTER 2024-09-18 15:09 | Outpatient (AMB) | payer OTHER, SELFPAY ==
--- NOTE | 2024-09-18 15:11 | MHC.OFFVIS ---
Vital Signs 09/18/24 15:13 Height 5 ft 4 in Weight 179 lb 0.246 oz BMI 30.7 BP 122/70 Blood Pressure Location Lt brachial Position Sitting Pulse 91 Pulse Source Monitor Intake Visit Reasons: pre-op clearance colonscopy per NS Staff Internist Office Based Only Required: No Ceramic Tile Installer: Ceramic Tile Installer Present Allergies phenytoin [From Dilantin] Allergy (Severe, Verified 09/18/24 15:15) Anaphylaxis Medication List - Last Reconciled 09/18/24 by ANEESH Paez amitriptyline 75 mg PO BEDTIME ascorbic acid (vitamin C) (Vitamin C) 500 mg PO DAILY cholecalciferol (vitamin D3) (Vitamin D3) 10 mcg PO DAILY cyanocobalamin (vitamin B-12) (Vitamin B-12) 50 mcg PO DAILY metoprolol succinate ER 50 mg PO BEDTIME montelukast (Singulair) 10 mg PO BEDTIME multivitamin 1 tab PO DAILY omeprazole 40 mg PO DAILY sertraline 25 mg PO BEDTIME zinc acetate 25 mg PO DAILY HPI HPI pre-op clearance colonscopy per NS: Details: Andrew is a 49-year-old male with past medical history of obesity, shortness of breath, palpitations who presents for follow-up and preop cardiovascular clearance. His last prior visit to our office was 10/18/2022. Today he reports that he continues to have issues with shortness of breath with activity and even at rest. He also notices heart palpitations that with activity and even at rest. Overall he feels his symptoms are about the same as they were when he was last seen by Dr. Olson. He has seen pulmonology as well and he states he may have some issues with oxygen perfusion, causing his symptoms. He has been taking the metoprolol and believes it does help some. He has cut back his physical activity in order to avoid symptoms. No chest discomfort at rest or with activity. No presyncope, syncope, falls. No PND, orthopnea. He does report some mild leg edema. is present. 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 [facility] Medical History (Updated 09/18/24 @ 15:52 by Hazel Romero, JOSE CRUZ-C) Localized swelling of both forearms Perforated Meckel's diverticulum Intra-abdominal abscess Meckel's diverticulitis Surgical History (Updated 09/18/24 @ 17:39 by ANEESH Paez) History of surgery (04/30/24) Hx of tonsillectomy S/P cardiac cath Hx of hernia repair Family History Father Heart valve replaced CAD (coronary artery disease) Mother CAD (coronary artery disease) Social History Household Members: Spouse Housing: House Do you presently have visiting nurse or other home services: No Alcohol intake: current Alcohol intake frequency: holidays/special occasions only Patient Tobacco Use Status: Never used Tobacco e-Cigarette/Vaping Use: Never Used service: No Review of Systems Const All systems reviewed & are unremarkable except as noted in HPI and below ENT Denies dizziness Card Denies chest pain, Denies chest pain at rest, Denies chest pain with activity, Reports rapid heart rate, Denies pedal edema, Denies edema, Denies leg edema, Denies lightheadedness, Denies palpitations, Denies dyspnea, Reports dyspnea on exertion and Denies orthopnea Resp Denies cough, Denies dyspnea and Reports dyspnea on exertion GI Denies hematochezia and Denies change in stool character Musc Denies abnormal gait, Denies limited range of motion, Denies muscle cramps, Denies muscle weakness, Denies numbness, Denies radiating pain into limb, Denies stiffness and Denies tingling Neuro Denies abnormal gait, Denies dizziness, Denies numbness and Denies tingling Endo Denies palpitations Physical Exam Vital Signs: Last Vital Signs Pulse 91 09/18/24 15:13 BP 122/70 09/18/24 15:13 BMI result Body Mass Index 30.7 Const General: cooperative, healthy appearing, comfortable and no acute distress Orientation/consciousness: patient oriented x3 Neck Neck: Yes normal visual inspection and Yes no JVD Resp Effort & Inspection: normal respiratory effort Auscultation: clear to auscultation bilaterally, no crackles, no rales, no rhonchi and no wheezes Cardio Jugular venous distension: no JVD Rate: regular rate Rhythm: regular rhythm Heart sounds: S1 normal heart sound present, S2 normal heart sound present, no murmurs and no rubs Neuro General: patient oriented x3 Extrem General: Yes normal to inspection and No no pedal edema Psych Appearance: grossly normal Mental Status: mental status grossly normal Speech and movement: Normal speech and movement present Office Procedures EKG Details: Today, read by me, Sinus rhythm, rate 91, QTc 447ms [id number], Complete Assessment & Plan Assessment & Plan (1) SOB (shortness of breath) on exertion: Code(s): R06.02 - Shortness of breath Category: Medical Plan: Reports of shortness of breath and heart palpitations that can happen at rest and with activity. Prior cardiac evaluation without significant findings. Echocardiogram done 04/14/2022 showed EF 60-65%, basal inferior akinetic, mid inferior hypokinetic. A nuclear stress test done 05/23/2022 showed no clear evidence of ischemia or infarct. He did undergo a cardiac catheterization on 09/29/2022 which showed normal coronary arteries. His echo wall motion abnormality was thought to be false positive. A Holter monitor was done for 3 days on 11/07/2022 showing sinus rhythm, average rate 90, rare ectopy. He now follows with pulmonology and tells me he may have an issue with oxygen perfusion. On exam today he does not appear fluid overloaded. His EKG today shows sinus rhythm, rate 91. His resting heart rate is elevated compared to normal. He is still noticing shortness of breath and heart palpitations. We discussed increasing his metoprolol dose and he is agreeable. Will increase metoprolol from 50 mg daily up to 75 mg daily. He can adjust dose back to 50 mg daily if he feels better on that dose. Cardiology follow-up 1 year, sooner if needed. (2) Palpitations: Code(s): R00.2 - Palpitations Category: Medical Plan: As above (3) Preop cardiovascular exam: Code(s): Z01.810 - Encounter for preprocedural cardiovascular examination Category: Medical Plan: Preop for upper and lower endoscopy with Dr. Weathers in the near future. Patient is low cardiac risk for this procedure. Continue metoprolol. Call/consult Cardiology if needed. (4) S/P cardiac cath: Comment: Sep 29, 2022 normal coronary arteries Code(s): Z98.890 - Other specified postprocedural states Category: Surgical Plan: As above Plan Time spent on chart review, documentation, interview and assessment Orders: Orders AMB EKG-In Office Today R00.2 - Palpitations Medications: Changed From metoprolol succinate ER 75 mg PO BEDTIME To metoprolol succinate ER Dose increased 75 mg (1.5 x 50 mg) PO BEDTIME 90 days 135 tabs 3RF Coding Level of Care Code Est Pt Level 4 (61668) Complex EM visit Add On G2211 Diagnoses SOB (shortness of breath) on exertion R06.02 Palpitations R00.2 Preop cardiovascular exam Z01.810 S/P cardiac cath Z98.890 CPT Codes EKG - CPT: [id number], Complete ([id number]) Time Spent (min) 28
[2024-09-18 15:13] VITALS: BP 122/70; PULSE 91; BMI 30.7
== END 2024-09-18 15:49 | disposition home or self-care (01) ==
PROVIDERS: PCP Family Medicine; Visit Provider Nurse Practitioner Family
DX: R06.02 Shortness of breath (principal); R00.2 Palpitations; Z01.810 Encounter for preprocedural cardiovascular examination; Z98.890 Other specified postprocedural states
CPT/HCPCS: 93010; 99214

== ENCOUNTER → 2024-09-18 15:09 | Outpatient (BNVA) | payer OTHER, SELFPAY | PROVIDERS: PCP Family Medicine; Visit Provider Nurse Practitioner Family | DX: Z01.810 Encounter for preprocedural cardiovascular examination (principal); R06.02 Shortness of breath; R00.2 Palpitations; E66.01 Morbid (severe) obesity due to excess calories; Z68.30 Body mass index [BMI] 30.0-30.9, adult; Z98.890 Other specified postprocedural states | CPT/HCPCS: 93005 ==

== ENCOUNTER 2024-10-02 12:05 | Outpatient (REF) | payer OTHER, SELFPAY ==
[2024-10-02 12:19] LABS: MANUAL DIFF FLAG NO
[2024-10-02 12:35] LABS: Basophils Absolute Auto 0.1 X10*3/uL (0.0-0.2); Basophils Percent Auto 0.8 % (0-2); Eosinophils Absolute Auto 0.1 X10*3/uL (0.0-0.4); Eosinophils Percent Auto 1.7 % (0-4); Hematocrit 41.1 % (42.0-52.0); Hemoglobin 14.8 g/dl (14.0-18.0); Imm Gran Abs Auto 0.01 X10*3/uL (0.00-0.03); Imm Gran Pct Auto 0.2 % (0.0-0.4); Lymphocytes Absolute Auto 1.3 X10*3/uL (1.2-4.9); Lymphocytes Percent Auto 22.5 % (20-40); Mean Corpuscular Hemoglobin 29.3 pg (27.0-33.0); Mean Corpuscular Volume 81.4 fL (80.0-98.0); Mean Platelet Volume 9.9 fL (9.4-12.4); Monocytes Absolute Auto 0.4 X10*3/uL (0.1-1.2); Monocytes Percent Auto 7.4 % (2-11); Neutrophils Percent Auto 67.4 % (45-73); Platelet Count 230 X10*3/uL (160-400); Red Blood Count 5.05 X10*6/uL (4.60-5.80); Red Cell Distribution Width 12.5 % (11.0-16.0); White Blood Count 5.9 X10*3/uL (4.8-10.8)
[2024-10-02 13:15] LABS: Erythrocyte Sedimentation Rate 5 MM/HR (0-15)
[2024-10-02 14:02] LABS: Albumin Level 4.5 g/dL (3.5-5.0); Alkaline Phosphatase 90 U/L (39-117); Anion Gap 12 (12-20); Aspartate Amino Transferase 29 U/L (5-37); Bilirubin Total 0.4 mg/dL (0.0-1.0); Blood Urea Nitrogen 12 mg/dL (9-16); Calcium 9.2 mg/dL (8.4-10.2); Carbon Dioxide 26 mmol/L (22-29); Chloride 107 mmol/L (96-108); Estimated Glomerular Filt Rate > 60; Glucose Random 88 mg/dL (60-115); Sodium 141 mmol/L (135-145); Total Protein 6.9 g/dL (6.5-8.0)
[2024-10-02 14:23] LABS: Alanine Aminotransferase 54 U/L (0-40)
== END 2024-10-02 12:06 | disposition home or self-care (01) ==
LOC: HO.LAB 12:05
PROVIDERS: PCP Family Medicine; Visit Provider Family Medicine
DX: R11.0 Nausea (principal); R06.02 Shortness of breath
CPT/HCPCS: 36415; 80053; 85025; 85652

== ENCOUNTER 2024-12-10 08:21 | Day surgery (SDC) | payer OTHER, SELFPAY ==
[2024-12-08 14:39] VITALS: BMI 30.7
--- NOTE | 2024-12-09 10:43 | P.CONAN_ITS ---
Documented by User: Barbra Charlton NP 12/09/24 10:47 HPI - Anesthesia Eval Consult details Narrative: 49yo M for Upper Endoscopy and Colonoscopy Cardiac optimized. Preop eval with [facility] for palp/SOB. No change from previous cardiac w/u 2022 [facility] Active Problems Active Problems: All Active Problems Preop cardiovascular exam (Acute) Palpitations (Acute) SOB (shortness of breath) on exertion (Acute) S/P cardiac cath (Acute) Past Medical History Medical History Depression Benoit's palsy Shortness of breath on exertion Localized swelling of both forearms Perforated Meckel's diverticulum Meckel's diverticulitis Family History Family History Father Heart valve replaced CAD (coronary artery disease) Mother CAD (coronary artery disease) Family history of problems with anesthesia: No Surgical History Surgical History History of surgery (04/30/24) Hx of tonsillectomy S/P cardiac cath Hx of hernia repair Social History Social History Household Members: Spouse Housing: House Are you a primary healthcare consulting manager to a significant other at home: No Do you presently have visiting nurse or other home services: No Alcohol intake: current Alcohol intake frequency: holidays/special occasions only Patient Tobacco Use Status: Never used Tobacco e-Cigarette/Vaping Use: Never Used Use of substances other than those prescribed or required for medical reasons: No Have you been hit, kicked, punched, or otherwise hurt by someone within the past year? If so, by whom?: No Are you DNR?: No Advance Directives: No Advance Directives Information Provided: Yes Advance Directives on File: No Recently lost weight without trying: No Nutrition Risks: No Nutritional Risk Poor oral hygiene: No service: No Meds Allergies Allergy/AdvReac Type Severity Reaction Status Date / Time phenytoin [From Dilantin] Allergy Severe Anaphylaxis Verified 09/18/24 15:15 Home Medications ?Medication ?Instructions ?Recorded ?Confirmed ?Last Taken ?Type montelukast 10 mg tablet 10 mg PO BEDTIME 09/26/22 12/08/24 04/29/24 History (Singulair) amitriptyline 75 mg tablet 75 mg PO BEDTIME 04/30/24 12/08/24 04/29/24 History ascorbic acid (vitamin C) 500 mg 500 mg PO DAILY 04/30/24 12/08/24 04/30/24 History tablet (Vitamin C) cholecalciferol (vitamin D3) 10 10 mcg PO DAILY 04/30/24 12/08/24 04/30/24 History mcg (400 unit) tablet (Vitamin D3) cyanocobalamin (vitamin B-12) 50 50 mcg PO DAILY 04/30/24 12/08/24 04/30/24 History mcg tablet (Vitamin B-12) multivitamin 1 tab PO DAILY 04/30/24 12/08/24 04/29/24 History sertraline 25 mg tablet 25 mg PO BEDTIME 04/30/24 12/08/24 04/29/24 History zinc acetate 25 mg (zinc) capsule 25 mg PO DAILY 04/30/24 12/08/24 04/29/24 History omeprazole 40 mg capsule,delayed 40 mg PO DAILY 09/18/24 12/08/24 Unknown History release Exam Height,Weight and Vital Signs: Height 5 ft 4 in Weight 81.193 kg Narrative Narrative: EKG 08/2024 Sinus rhythm, rate 91, QTc 447ms Per 08/2024 cardiac office visit: Echocardiogram done 04/14/2022 showed EF 60-65%, basal inferior akinetic, mid inferior hypokinetic. nuclear stress test done 05/23/2022 showed no clear evidence of ischemia or infarct. cardiac catheterization on 09/29/2022 which showed normal coronary arteries. His echo wall motion abnormality was thought to be false positive. A Holter monitor was done for 3 days on 11/07/2022 showing sinus rhythm, average rate 90, rare ectopy. Assessment and Plan Assessment Anesthesia Assessment: Chart Reviewed Final Anesthetic Review Family History of Problems with Anesthesia: No Documented by User: Emily Eric MD 12/10/24 11:26 HPI - Anesthesia Eval Consult details Narrative: 49yo M for Upper Endoscopy and Colonoscopy Cardiac optimized. Preop eval with [facility] for palp/SOB. No change from previous cardiac w/u 202212/10/24: Still with unexplained SOB. Cardiac and pulmonary w/u so far negative. ?Long Covid PMFSH Active Problems Active Problems: All Active Problems Preop cardiovascular exam (Acute) Palpitations (Acute) SOB (shortness of breath) on exertion (Acute) S/P cardiac cath (Acute)- normal PFTs normal Denies NAFISA Past Medical History Medical History Depression Benoit's palsy Shortness of breath on exertion Localized swelling of both forearms Perforated Meckel's diverticulum Meckel's diverticulitis Family History Family History Father Heart valve replaced CAD (coronary artery disease) Mother CAD (coronary artery disease) Family history of problems with anesthesia: No Surgical History Surgical History History of surgery (04/30/24) Hx of tonsillectomy S/P cardiac cath Hx of hernia repair History of Problems with Anesthesia: No Social History Social History Household Members: Spouse Housing: House Are you a primary healthcare consulting manager to a significant other at home: No Do you presently have visiting nurse or other home services: No Alcohol intake: current Alcohol intake frequency: holidays/special occasions only Patient Tobacco Use Status: Never used Tobacco e-Cigarette/Vaping Use: Never Used Use of substances other than those prescribed or required for medical reasons: No Have you been hit, kicked, punched, or otherwise hurt by someone within the past year? If so, by whom?: No Are you DNR?: No Advance Directives: No Advance Directives Information Provided: Yes Advance Directives on File: No Recently lost weight without trying: No Nutrition Risks: No Nutritional Risk Poor oral hygiene: No service: No Meds Allergies Allergy/AdvReac Type Severity Reaction Status Date / Time phenytoin [From Dilantin] Allergy Severe Anaphylaxis Verified 09/18/24 15:15 Home Medications ?Medication ?Instructions ?Recorded ?Confirmed ?Last Taken ?Type montelukast 10 mg tablet 10 mg PO BEDTIME 09/26/22 12/08/24 04/29/24 History (Singulair) amitriptyline 75 mg tablet 75 mg PO BEDTIME 04/30/24 12/08/24 04/29/24 History ascorbic acid (vitamin C) 500 mg 500 mg PO DAILY 04/30/24 12/08/24 04/30/24 History tablet (Vitamin C) cholecalciferol (vitamin D3) 10 10 mcg PO DAILY 04/30/24 12/08/24 04/30/24 History mcg (400 unit) tablet (Vitamin D3) cyanocobalamin (vitamin B-12) 50 50 mcg PO DAILY 04/30/24 12/08/24 04/30/24 History mcg tablet (Vitamin B-12) multivitamin 1 tab PO DAILY 04/30/24 12/08/24 04/29/24 History sertraline 25 mg tablet 25 mg PO BEDTIME 04/30/24 12/08/24 04/29/24 History zinc acetate 25 mg (zinc) capsule 25 mg PO DAILY 04/30/24 12/08/24 04/29/24 History omeprazole 40 mg capsule,delayed 40 mg PO DAILY 09/18/24 12/08/24 Unknown History release Exam Height,Weight and Vital Signs: Height 5 ft 4 in Weight 81.193 kg Vital Signs Temp Pulse Resp BP Pulse Ox O2 Del Method 12/10/24 09:27 98.6 F 79 18 105/71 99 Room Air Airway Mallampati Class: III TM Dist: >3cm Neck ROM: Full Heart: RRR Lungs: CTAB Assessment and Plan Assessment Anesthesia Assessment: Anesthesia Plan Discussed and Chart Reviewed Final Anesthetic Review Family History of Problems with Anesthesia: No History of Problems with Anesthesia: No NPO: Yes ASA Class: III Final Preanesthetic Review: No Changes in Pt Med Stat, Meds/Allgs Chart Reviewed, Consent Obtained/Reviewed and Anes Risks/Benef Reviewed Patient Risk: Intermediate Procedure Risk: Low Assessment/Block/Sedation in SS: Assess/Block/Sedation-SS Anesthetic Plan Anesthetic Plan: TIVA Disposition: Standard PACU
[2024-12-10 08:37] VITALS: BMI 30.1
[2024-12-10 09:27] VITALS: BP 105/71; PULSE 79; RESP 18; TEMP 37; O2SAT 99
[2024-12-10] MEDS: Lactated Ringers 1,000 ML 100 ML IVCONT (09:35)
[2024-12-10 11:25] VITALS: BP 102/75; PULSE 74; RESP 18; TEMP 36.1; O2SAT 96
--- NOTE | 2024-12-10 11:28 | PM.OP ---
Brief Operative Note Date of Service: 12/10/24 Pre-op diagnosis: GERD, Screening Post-op diagnosis: other (Hiatal hernia, Gastritis, Diverticulosis) Procedure: EGD with biopsies, Colonoscopy to the cecum and TI Surgeon: Sarabjit Weathers MD Anesthesia: MAC Was an Chargeback Specialist used for this Procedure?: No Estimated blood loss (mL): 2.0 Pathology: other (A. Gastric antrum B. EG Junction at 35cm) Condition: stable Disposition: PACU
[2024-12-10 11:40] VITALS: BP 96/67; PULSE 73; RESP 18; O2SAT 96
--- NOTE | 2024-12-10 11:54 | OP_ITS ---
DATE OF SERVICE: 12/10/2024 SURGEON: Sarabjit Weathers MD INDICATIONS: The patient presents for evaluation of gastroesophageal reflux and colorectal cancer screening, as well as family history of colon cancer. Full consent was obtained from him for both procedures, including risks of bleeding and perforation. PREOPERATIVE DIAGNOSIS: POSTOPERATIVE DIAGNOSIS: PROCEDURE PERFORMED: ESTIMATED BLOOD LOSS: COMPLICATIONS: ANESTHESIA: Monitored anesthesia care. ASSISTANTS: SPECIMENS: PREOPERATIVE DIAGNOSES: Gastroesophageal reflux, family history of colon cancer, and colorectal cancer screening. POSTOPERATIVE DIAGNOSES: Gastroesophageal reflux, family history of colon cancer, and colorectal cancer screening, hiatal hernia, gastritis, diverticulosis, internal hemorrhoids. PROCEDURES PERFORMED: 1. Esophagogastroduodenoscopy with biopsies. 2. Colonoscopy to the cecum and terminal ileum. DESCRIPTION OF PROCEDURE: The patient was placed in left lateral decubitus position. The Olympus video gastroscope was passed in the posterior oropharynx and upper esophagus under direct vision. The scope was passed slowly to the distal esophagus. The gastroesophageal junction appeared at 35 cm. There was some slight irregularity, consistent with reflux but no esophagitis nor any definitive evidence of Gee mucosa. There was a small hiatal hernia. The scope was advanced to the pylorus and the duodenum was cannulated to the descending portion. The duodenum including the bulb appeared normal without mass or ulceration. The scope was withdrawn back to the stomach. The gastric antrum had areas of erythema and edema, but no erosions or ulceration. There was good peristalsis. Biopsies were obtained from the antrum. The scope was retroflexed visualizing the proximal stomach carefully, which appeared normal, without any sign of mass or ulceration. The scope was straightened and withdrawn back to the esophagus. Biopsies were obtained at the EG junction at 35 cm. Proximal to this, the esophageal mucosa appeared normal. The scope was withdrawn from the patient and he was turned around for the colonoscopy. The digital rectal exam revealed no abnormalities. The Olympus video pediatric colonoscope was entered into the rectum and advanced easily to the cecum. Once in the cecum, I did identify normal-appearing cecal pouch with appendiceal orifice and a normal-appearing ileocecal valve. The terminal ileum was cannulated and appeared normal. Scope was withdrawn back in the colon. The entire cecum and ileocecal valve appeared normal. The scope was slowly withdrawn assessing all mucosal surfaces carefully. Preparation was excellent. I did not visualize any sign of polyps, colitis, nor angiodysplasia. There was a mild amount of sigmoid diverticulosis. In the rectum, scope was retroflexed visualizing internal hemorrhoids, but no other pathology. The rectal mucosa appeared normal. The scope was straightened and withdrawn from the patient. He tolerated both procedures well and was returned to recovery area in stable condition. IMPRESSION: 1. Hiatal hernia, gastroesophageal reflux. 2. Gastritis. 3. Diverticulosis. 4. Internal hemorrhoids. PLAN: The results of the biopsies will be checked. He was advised to continue his current regimen of [id number] Prevacid daily. I would recommend a repeat colonoscopy in 5 years given the family history of colon cancer. A recent abdominal ultrasound was negative for gallstones. If things remain stable, he will otherwise see me on a p.r.n. basis. MD JOSSE Johnson/DIMITRI / [phone]
[2024-12-10 12:15] VITALS: BP 104/60; PULSE 79; RESP 18; O2SAT 96
== END 2024-12-10 12:40 | disposition home or self-care (01) ==
PROVIDERS: PCP Family Medicine; Visit Provider Internal Medicine
PROC: (CPT 45378; principal; 2024-12-10 09:30)
DX: Z12.11 Encounter for screening for malignant neoplasm of colon (principal); Z80.0 Family history of malignant neoplasm of digestive organs; K57.30 Diverticulosis of large intestine without perforation or abscess without bleeding; K64.8 Other hemorrhoids; K21.9 Gastro-esophageal reflux disease without esophagitis; K29.50 Unspecified chronic gastritis without bleeding; K44.9 Diaphragmatic hernia without obstruction or gangrene; J45.909 Unspecified asthma, uncomplicated; R00.0 Tachycardia, unspecified; G51.0 Bell's palsy; F32.A Depression, unspecified; Z79.899 Other long term (current) drug therapy; Z98.890 Other specified postprocedural states
CPT/HCPCS: 45378; 43239; 88305; 88313; 88342; J2003; J2704

== ENCOUNTER 2025-05-22 11:11 | Outpatient (AMB) | payer OTHER, SELFPAY ==
--- OUTSIDE RECORDS SUMMARY | 2024-12-10 05:30 | XMS_ITS ---
Author Organization [facility] Address [address] [place] [address] Care Team Providers Care Student Ambassador Name Role Phone Christian (RETIRED) George RODRÍGUEZ Primary Care Provider Unavailable Sarabjit Weathers Unavailable [phone] REASON FOR VISIT gerd,screening Encounters Encounter Location Date Provider Diagnosis [facility] [place] Outpatient [address], [place] [id number] 12/10/2024 Sarabjit Weathers Colon cancer scree zane Z12.11 ; Family history of colon cancer Z80.0 ; Diverticulosis of large intestine without perforation or abscess without bleeding K57.30 ; Other hemorrhoids K64.8 ; Gastro-esophageal reflux disease without esophagitis K21.9 ; Gastritis K29.70 and Hiatal hernia K44.9 Assessments Encounter Date Diagnosis (ICD Code) Assessment Notes Treatment Notes Treatment Clinical Notes Section Notes 12/10/2024 Colon cancer screening (ICD-10 - Z12.11) 12/10/2024 Family history of colon cancer (ICD-10 - Z80.0) 12/10/2024 Diverticulosis of large intestine without perforation or abscess without bleeding (ICD-10 - K57.30) 12/10/2024 Other hemorrhoids (ICD-10 - K64.8) 12/10/2024 Gastro-esophageal reflux disease without esophagitis (ICD-10 - K21.9) 12/10/2024 Gastritis (ICD-10 - K29.70) 12/10/2024 Hiatal hernia (ICD-10 - K44.9) Plan Of Treatment No Information Progress Notes * BAN AKHTARDOB: 3 (50 yo M)Acc No.[id number]:12/10/2024 EGD and COL/MAC Patient: BAN VICENTE Provider: King Weathers MD :1975 A ge:49 Y S ex:Male Date:12/10/2024 Address:[address] [place], [place] [id number] Pcp:George Gonzales (RETIRED) MD Subjective: * Chief Complaints: * 1 . Gerd,screening. * Medical History: Objective: * Vitals: Assessment: * Assessment: 1. C olon cancer screening - Z12.11 (Primary) 2 . F amily history of colon cancer - Z80.0 3 . D iverticulosis of large intestine without perforation or abscess without bleeding - K57.30 4 . O ther hemorrhoids - K64.8 5 . G elton-esophageal reflux disease without esophagitis - K21.9 6 . G astritis - K29.70 7 . H iatal hernia - K44.9 Plan: * Treatment: * Procedure Codes: 4 5378 DIAGNOSTIC COLONOSCOPY, Modifiers: 33 , 83613 UPPER GI ENDOSCOPY, BIOPSY * * The named appointment provid er may or may not be the originator of this progress note, and it is not deemed complete until electronically signed by the appointment provider. Sign off status: Pending * Provider: King Weathers MD Date: 0 12/10/2024 Generated for Michael lopez/Benny/Cheoitting on: 0 05/22/2025 11:51 AM EDT
--- NOTE | 2025-05-22 11:27 | A.OFFPC_ITS ---
Vital Signs 05/22/25 11:31 Height 5 ft 4 in Weight 82.1 kg BMI 31.1 BP 142/90 H Pulse 80 Pulse Source Pulse Oximeter Temp 97.2 F Temp Source Temporal Artery Scan Pulse Oximetry (%) 99 Oxygen Delivery Method Room Air Intake Visit Reasons: 3 MONTH FOLLOW UP-JAMILA PT Scaffold Erector Required: No Accompanied by: Spouse Allergies phenytoin (From Dilantin) Allergy (Severe, Verified 05/22/25 11:27) Anaphylaxis Medication List - Last Reconciled 05/22/25 by BONITA Jeronimo amitriptyline 75 mg PO BEDTIME ascorbic acid (vitamin C) (Vitamin C) 500 mg PO DAILY cetirizine 10 mg PO DAILY PRN cholecalciferol (vitamin D3) (Vitamin D3) 10 mcg PO DAILY cyanocobalamin (vitamin B-12) (Vitamin B-12) 50 mcg PO DAILY metoprolol succinate ER 50 mg PO BEDTIME 90 days montelukast (Singulair) 10 mg PO BEDTIME multivitamin 1 tab PO DAILY omeprazole 40 mg PO DAILY ondansetron HCl mg PO sertraline 50 mg PO DAILY zinc acetate 25 mg PO DAILY Tobacco use date assessed: 05/22/25 Dental Screening Dental Screen Date: 05/22/25 Did you have a dental visit in the last 12 months?: Yes Did you have a dental problem in the last 6 months where you did not have access to dental care?: No Was dental information given to patient?: No HPI HPI Comments History of Present Illness Details 50-year-old male with history of BP PV, GERD, major depressive disorder, venous insufficiency, CAD presenting to the office today accompanied by his , Phyllis, for management of chronic conditions and to establish care CAD/HLD- Dr Vences. s/p cardiac cath 2022, no stenting. Occ chest tightness, no pressure. Decreased activity- no longer playing basketball, sports with kids anymore. Not on asa. On metoprolol. MDD/Fibromyalgia- PCP managing. Situational related to CAD, the unknown. On sertraline 50mg daily. Amitriptyline 50mg for fibro. No SI/HI. PHQ-9 score 1. Gerd- on omeprazole Unspecified rash- years ago. Managed with singulair. No longer following with derm Hypertension-on metoprolol 50 mg ER. Blood pressures historically have been low, today 98/70. He does report episodes of lightheadedness with position changes Concerns: As above Health maintenance: Last screening colonoscopy 11/2024 with 5 year follow-up advised. Dr. Weathers ROS: General: No fevers, malaise, unintentional weight loss HEENT: No blurred vision, diplopia. No sore throat, nasal congestion, rhinorrhea, sinus pain, ear pain Cardiovascular: No chest pain, palpitations, or leg edema Respiratory: No shortness of breath, wheezing, cough GI: No abdominal pain, nausea, vomiting, diarrhea, constipation, melena, hematochezia : No dysuria, hematuria, increased urinary frequency, decreased urinary output MSK: No myalgia, back pain Neuro: No headaches, weakness, paresthesias Skin: No rashes or lesions EXAM: Constitutional - Awake and Alert, No apparent distress Eyes - PERRL Cardiovascular - S1S2, RRR, No edema Respiratory - Normal lung expansion, Normal respiratory effort, No respiratory distress, CTA bilaterally Extremities - no calf tenderness bilaterally, no swelling Skin - Warm/Dry Neurological - Alert & oriented x3 Psychological - Appropriate affect [facility] Medical History (Updated 05/22/25 @ 12:26 by BONITA Jeronimo) Venous insufficiency GERD (gastroesophageal reflux disease) HTN (hypertension) Vertigo CAD (coronary artery disease) Depression Benoit's palsy Shortness of breath on exertion Localized swelling of both forearms Perforated Meckel's diverticulum Meckel's diverticulitis Surgical History (Updated 03/23/25 @ 14:00 by Aurea Fulton) History of colonoscopy (~12/10/24) History of surgery (04/30/24) Hx of tonsillectomy S/P cardiac cath Hx of hernia repair Family History Father Heart valve replaced CAD (coronary artery disease) Mother CAD (coronary artery disease) Social History Household Members: Spouse Housing: House Are you a primary pharmacy customer care specialist to a significant other at home: No Do you presently have visiting nurse or other home services: No Alcohol intake: current Alcohol intake frequency: holidays/special occasions only Patient Tobacco Use Status: Never used Tobacco e-Cigarette/Vaping Use: Never Used service: No Current occupational status: employed Cognitive needs: No Hearing needs: No Vision needs: Yes (Rx glasses) Questionnaire PHQ-9 Over the last 2 weeks, how often have you been bothered by any of the following problems? 1. Little interest or pleasure in doing things: not at all 2. Feeling down, depressed, or hopeless: not at all 3. Trouble falling or staying asleep, or sleeping too much: not at all 4. Feeling tired or having little energy: several days 5. Poor appetite or overeating: not at all 6. Feeling bad about yourself - or that you are a failure or have let yourself or your family down: not at all 7. Trouble concentrating on things, such as reading the newspaper or watching television: not at all 8. Moving or speaking so slowly that other people could have noticed. Or the opposite - being so fidgety or restless that you have been moving around a lot more than usual: not at all 9. Thoughts that you would be better off or of hurting yourself in some way: not at all Total score: 1 Depression Screening Interpretation: Negative Depression Screening Done: Yes 24175 - PHQ-9 Billing: Yes Source: Developed by Drs. Sarabjit Rust, Maria Esther Duncan, Bhavin Bain and colleagues, with an educational prabha from [employer]. Thrive Questionnaire Date Thrive assessed: 05/22/25 I am a: Patient What is your living situation today?: I have a steady place to live Within the past 12 months, did the food you bought not last and you didn't have the money to get more?: Never true Within the past 12 months, did you worry whether your food would run out before you got money to buy more?: Never true Do you have trouble paying for medicines?: No Do you have trouble getting transportation to medical appointments?: No Do you have trouble paying your heating and electricity bill?: No Do you have trouble taking care of your child, family member or friend?: No Do you have trouble with day-to-day activities such as bathing, preparing meals, shopping, managing finances, etc.?: No Are you currently unemployed and looking for a job?: No Are you interested in more education?: No Please select the resources that you would like help with: None THRIVE Score: 0 AMISHA-7 AMB Questionnaire AMISHA-7 Date AMISHA - 7 assessed: 05/22/25 Feeling nervous, anxious, or on edge: 0 = Not at all Not being able to stop or control worryin = Not at all Worrying too much about different things: 0 = Not at all Trouble relaxin = Not at all Being so restless that it is hard to sit still: 0 = Not at all Becoming easily annoyed or irritable: 0 = Not at all Feeling afraid as if something awful might happen: 0 = Not at all Total AMISHA-7 score (0-4 normal; 5-9 mild; 10-14 moderate; 15-21 severe): 0 Source: Developed by Drs. Sarabjit Rust, Maria Esther Duncan, Bhavin Bain and colleagues, with an educational prabha from [employer]. AMISHA-7 Assessment Billing AMISHA-7 Assessment Tool: AMISHA-7 Assessment 10745 Physical exam (Primary Care) Vital Signs: Last Vital Signs Temp 97.2 F 05/22/25 11:31 Pulse 80 05/22/25 11:31 BP 142/90 H 05/22/25 11:31 Pulse Ox 99 05/22/25 11:31 Oxygen Delivery Method Room Air 05/22/25 11:31 BMI result Body Mass Index 31.1 Tobacco/Smoking Status: Tobacco use Status Tobacco use date assessed 05/22/25 05/22/25 11:33 Patient Tobacco Use Status Never used Tobacco 05/22/25 11:33 e-Cigarette/Vaping Use Never Used 05/22/25 11:33 PHQ-9: PHQ-9 Score PHQ-9: Total score 1 05/22/25 11:53 Depression Screening Interpretation: Negative Thrive Assessment: Date of Thrive Assessment Date Thrive assessed 05/22/25 05/22/25 11:34 Coding Level of Care Code New Pt Level 4 (54127) Complex EM visit Add On G2211 Diagnoses CAD (coronary artery disease) I25.10 Depression F32.A HTN (hypertension) I10 GERD (gastroesophageal reflux disease) K21.9 Lightheadedness R42 Venous insufficiency I87.2 Additional Codes AMISHA-7 Assessment Billing - AMISHA-7 Assessment Tool: AMISHA-7 Assessment 79786 ([id number]) PHQ-9 - 98295 - PHQ-9 Billing: Yes ([id number]) Assessment & Plan Assessment & Plan (1) CAD (coronary artery disease): Code(s): I25.10 - Atherosclerotic heart disease of [place] coronary artery without angina pectoris Category: Medical Plan: Stable. Recommend enquiring with Cardiology whether he should be on baby a spirin or not. Continue beta-ayad but decrease dose (2) Depression: Code(s): F32.A - Depression, unspecified Category: Medical Plan: Stable. PHQ-9 score 1. Continue sertraline 50 mg daily and continue amitriptyline at bedtime for fibromyalgia management (3) HTN (hypertension): Code(s): I10 - Essential (primary) hypertension Category: Medical Plan: Borderline hypotensive with associated lightheadedness. Decreased metoprolol to 50 mg ER at bedtime. Advised to check blood pressures at home and reach out to the office with readings in about 5 days. (4) GERD (gastroesophageal reflux disease): Code(s): K21.9 - Gastro-esophageal reflux disease without esophagitis Category: Medical Plan: Continue omeprazole (5) Lightheadedness: Code(s): R42 - Dizziness and giddiness Category: Medical Plan: As above (6) Venous insufficiency: Code(s): I87.2 - Venous insufficiency (chronic) (peripheral) Category: Medical Plan: Recommend leg elevation and compression stockings Plan Follow-up in the office in 6 months. Labs to be completed today as well as several days prior to next visit Orders: Orders Lipid Panel Today F32.A - Depression, unspecified, R42 - Dizziness and giddiness Liver Panel Today F32.A - Depression, unspecified, R42 - Dizziness and giddiness Basic Metabolic Panel 6 Months F32.A - Depression, unspecified, I25.10 - Atherosclerotic heart disease of [place] coronary artery without angina pectoris Lipid Panel 6 Months F32.A - Depression, unspecified, I25.10 - Atherosclerotic heart disease of [place] coronary artery without angina pectoris Basic Metabolic Panel Today F32.A - Depression, unspecified, R42 - Dizziness and giddiness Prostate Specific Antigen Today F32.A - Depression, unspecified, R42 - Dizziness and giddiness Hemoglobin A1c Today F32.A - Depression, unspecified, R42 - Dizziness and giddiness Medications: Changed From metoprolol succinate ER Dose increased 75 mg (1.5 x 50 mg) PO BEDTIME 90 days 135 tabs 3RF To metoprolol succinate ER Dose increased 50 mg PO BEDTIME 90 tabs 3RF 90 days
[2025-05-22 11:31] VITALS: BP 142/90; PULSE 80; TEMP 36.2; O2SAT 99; BMI 31.1
--- OUTSIDE RECORDS SUMMARY | 2025-05-22 11:51 | XMS_ITS | Patient Health Record ---
Author Organization [facility] Address [address] [place] [address] Care Team Providers Care Career Discovery Teacher Name Role Phone Christian (RETIRED) George RODRÍGUEZ Primary Care Provider Unavailable Sarabjit Weathers [facility] [phone] Allergies Allergen (clinical drug ingredient) Drug/Non Drug Allergy documented on EMR Reaction Allergy Type Onset Date Status phenytoin Dilantin Unknown Drug Allergy Active Results Component Value Reference Range Notes US abdomen complete Reviewed date:10/02/2024 12:23:37 PM Interpretation: Performing Lab: Notes/Report: [address] [address] Ultrasound Report Signed Patient: Ban Regalado MR#: [id number] 30 : 1975 Acct:[id number] Age/Sex: 49 / M ADM Date: 09/02/24 Loc: HO.US Attending Dr: Sarabjit Weathers MD Ordering Physician: Sarabjit Weathers MD Date of Service: 09/02/24 Procedure(s): US abdomen complete Accession Number(s): [id number] cc: George Gonzales MD; Sarabjit Weathers MD EXAMINATION: US ABDOMEN COMPLETE CLINICAL INFORMATION: Right upper quadrant pain. COMPARISON: CT abdomen and pelvis 04/30/2024. TECHNIQUE: Real-time imaging of the abdominal viscera. FINDINGS: PANCREAS: Visualized portions are unremarkable. ABDOMINAL AORTA: The proximal, mid, and distal segments are normal in caliber. INFERIOR VENA CAVA: Visualized portions are normal. LIVER: The liver is normal in size. The liver contour is normal. Increased echogenicity of the liver parenchyma, this can be seen in the setting of hepatic steatosis or liver parenchymal disease. There are liver cysts left lobe 1.2 cm, right lobe 1.6 cm, these are simple cysts. There is no intrahepatic biliary duct dilatation seen. GALLBLADDER: The gallbladder is physiologically distended without evidence of stones, sludge, polyps, wall thickening or pericholecystic fluid. COMMON BILE DUCT: Normal in caliber measuring 0.3 cm in diameter. RIGHT KIDNEY: No hydronephrosis. No renal calculi or focal parenchymal lesions. The kidney measures 11.0 cm in maximum dimension. LEFT KIDNEY: No hydronephrosis. No renal calculi or focal parenchymal lesions. The kidney measures 10.0 cm in maximum dimension. SPLEEN: The spleen measures 11.9 cm in maximum dimension. FREE FLUID: None. US/US abdomen complete IMPRESSION: 1. No ultrasound evidence of gallbladder disease or gallstones. 2. Increased echogenicity of the liver parenchyma, this can be seen in the setting of hepatic steatosis or liver parenchymal disease. 3. There are simple liver cysts. Electronically signed by: Danii Presley MD 09/14/2024 01:26 PM [facility] Dictated By: Danii Presley MD Signed By: <Electronically signed by Danii Presley MD in OV> 09/14/24 1326 DD/ TD/TT: 09/02/2455 Orthotics Assistant: Pathology Reviewed date:12/20/2024 10:56:51 PM Interpretation: Performing Lab:[facility], [address] [place] [id number] Notes/Report: Reason For Referral No Information Medications Medication SIG (Take, Route, Frequency, Duration) Notes Start Date End Date Status Sertraline HCl 25 MG Oral for 90 Active Amitriptyline HCl 75 MG Oral for 90 Active Montelukast Sodium 10 MG Oral for 90 Active Metoprolol Succinate ER 50 MG Oral for 90 Active Social History Tobacco Use: Social History Observation Description Date Details (start date - stop date) Never Smoker NA - NA Tobacco Use/Smoking Question Answer Notes Patient is a nonsmoker Alcohol Screen Question Answer Notes Did you have a drink contain ing alcohol in the past year? Yes How often did you have a dri nk containing alcohol in the past year? Never (0 point) How many drinks did you have on a typical day when you were drinking in the past year? 1 or 2 drinks (0 point) How often did you have 6 or more drinks on one occasion in the past year? Never (0 point) Points 0 Interpretation Negative Section Notes: occasional drink on holidays Problems Problem Type SNOMED Code ICD Code Onset Dates Problem Status W/U Status Risk Notes Problem Colon cancer screening (986367886) Colon cancer screening (Z12.11) Active confirmed Problem Right upper quadrant pain (423274163) Abdominal pain, right upper quadrant (R10.11) Active confirmed Problem Gastroesophageal reflux disease (disorder) (111323527) Chronic GERD (K21.9) Active confirmed Vital Signs Blood pressure diastolic 00 mm Hg 08/19/2024 Height 5 ft 4 in in 08/19/2024 Blood pressure systolic 00 mm Hg 08/19/2024 Weight 172 lbs 08/19/2024 BMI 29.52 kg/m2 08/19/2024 Encounters Encounter Location Date Provider Diagnosis [facility] [address] [place] [phone] 12/10/2024 Sarabjit Weathers Colon cancer screeni ng Z12.11 ; Family history of colon cancer Z80.0 ; Diverticulosis of large intestine without perforation or abscess without bleeding K57.30 ; Other hemorrhoids K64.8 ; Gastro-esophageal reflux disease without esophagitis K21.9 ; Gastritis K29.70 and Hiatal hernia K44.9 [facility] [address] [place] [phone] 08/19/2024 Sarabjit Weathers Chronic GERD K21.9 ; Colon cancer screening Z12.11 and Abdominal pain, right upper quadrant R10.11 [facility] [address] [phone] 10/02/2024 Sarabjit Weathers [facility] [address] [facility] [address] [place] [phone] 10/02/2024 Sarabjit Weathers [facility] [address] [address] 12/17/2024 Sarabjit Weathers Assessments Encounter Date Diagnosis (ICD Code) Assessment Notes Treatment Notes Treatment Clinical Notes Section Notes 12/10/2024 Colon cancer screening (ICD-10 - Z12.11) 12/10/2024 Family history of colon cancer (ICD-10 - Z80.0) 08/19/2024 Colon cancer screening (ICD-10 - Z12.11) Overall, Ban appears well from a clinical standpoint. He is having some ongoing issues of reflux but without any worrisome symptoms such as dysphagia. However, I did recommend an upper endoscopy for evaluation to rule out any component of significant esophagitis, Gee's esophagus, and/or a hiatal hernia. In the meantime, I did recommend that he start himself on some chzf-lgw-gexmsin Prevacid to see if that gives him relief again. I offered to give him a prescription strength PPI but he would rather get the ljua-uab-bgsricu. On the same day I recommended a screening colonoscopy given his age and family history. We did review the rationale for this in regard to colon cancer prevention. Both procedures will be done with monitored anesthesia care. Full consent was obtained from him for both procedures, including risks of bleeding and perforation. The procedures will be scheduled for him sometime into next year after his cardiology followup appointment so we can obtain cardiology clearance. In regard to his abdominal discomfort I did recommend an abdominal ultrasound to check for any gallstones that may not have been visualized on his CT scans. As a side issue, I did advise him to speak with one of the specialists that he is seeing regarding his overall symptoms about obtaining some further autonomic testing and consideration of a trial of fludrocortisone for some of his symptoms. Ban and his were comfortable with this plan. Thank you again for allowing me to participate in Ban's care. I shall continue to keep you advised of his progress. 08/19/2024 Chronic GERD (ICD-10 - K21.9) Start 1 or 2 over the counter Prevacid 15mg daily for the reflux Overall, Ban appears well from a clinical standpoint. He is having some ongoing issues of reflux but without any worrisome symptoms such as dysphagia. However, I did recommend an upper endoscopy for evaluation to rule out any component of significant esophagitis, Gee's esophagus, and/or a hiatal hernia. In the meantime, I did recommend that he start himself on some tpfb-tmy-bkocykz Prevacid to see if that gives him relief again. I offered to give him a prescription strength PPI but he would rather get the gemb-gkc-xxegoue. On the same day I recommended a screening colonoscopy given his age and family history. We did review the rationale for this in regard to colon cancer prevention. Both procedures will be done with monitored anesthesia care. Full consent was obtained from him for both procedures, including risks of bleeding and perforation. The procedures will be scheduled for him sometime into next year after his cardiology followup appointment so we can obtain cardiology clearance. In regard to his abdominal discomfort I did recommend an abdominal ultrasound to check for any gallstones that may not have been visualized on his CT scans. As a side issue, I did advise him to speak with one of the specialists that he is seeing regarding his overall symptoms about obtaining some further autonomic testing and consideration of a trial of fludrocortisone for some of his symptoms. Ban and his were comfortable with this plan. Thank you again for allowing me to participate in Ban's care. I shall continue to keep you advised of his progress. 12/10/2024 Diverticulosis of large intestine without perforation or abscess without bleeding (ICD-10 - K57.30) 08/19/2024 Abdominal pain, right upper quadrant (ICD-10 - R10.11) Overall, Ban appears well from a clinical standpoint. He is having some ongoing issues of reflux but without any worrisome symptoms such as dysphagia. However, I did recommend an upper endoscopy for evaluation to rule out any component of significant esophagitis, Gee's esophagus, and/or a hiatal hernia. In the meantime, I did recommend that he start himself on some qnyf-znp-uouiape Prevacid to see if that gives him relief again. I offered to give him a prescription strength PPI but he would rather get the zglt-dse-vrnkjjo. On the same day I recommended a screening colonoscopy given his age and family history. We did review the rationale for this in regard to colon cancer prevention. Both procedures will be done with monitored anesthesia care. Full consent was obtained from him for both procedures, including risks of bleeding and perforation. The procedures will be scheduled for him sometime into next year after his cardiology followup appointment so we can obtain cardiology clearance. In regard to his abdominal discomfort I did recommend an abdominal ultrasound to check for any gallstones that may not have been visualized on his CT scans. As a side issue, I did advise him to speak with one of the specialists that he is seeing regarding his overall symptoms about obtaining some further autonomic testing and consideration of a trial of fludrocortisone for some of his symptoms. Ban and his were comfortable with this plan. Thank you again for allowing me to participate in Ban's care. I shall continue to keep you advised of his progress. 12/10/2024 Other hemorrhoids (ICD-10 - K64.8) 12/10/2024 Gastro-esophagea l reflux disease without esophagitis (ICD-10 - K21.9) 12/10/2024 Gastritis (ICD-10 - K29.70) 12/10/2024 Hiatal hernia (ICD-10 - K44.9) 08/19/2024 Other Ask about Autonomic testing(Tilt table test) for the other symptoms you have. Fludrocortisone medication might help with your symptoms. Overall, Ban appears well from a clinical standpoint. He is having some ongoing issues of reflux but without any worrisome symptoms such as dysphagia. However, I did recommend an upper endoscopy for evaluation to rule out any component of significant esophagitis, Gee's esophagus, and/or a hiatal hernia. In the meantime, I did recommend that he start himself on some zwei-mzy-sgoozvo Prevacid to see if that gives him relief again. I offered to give him a prescription strength PPI but he would rather get the rlcd-abm-gihdlhs. On the same day I recommended a screening colonoscopy given his age and family history. We did review the rationale for this in regard to colon cancer prevention. Both procedures will be done with monitored anesthesia care. Full consent was obtained from him for both procedures, including risks of bleeding and perforation. The procedures will be scheduled for him sometime into next year after his cardiology followup appointment so we can obtain cardiology clearance. In regard to his abdominal discomfort I did recommend an abdominal ultrasound to check for any gallstones that may not have been visualized on his CT scans. As a side issue, I did advise him to speak with one of the specialists that he is seeing regarding his overall symptoms about obtaining some further autonomic testing and consideration of a trial of fludrocortisone for some of his symptoms. Ban and his were comfortable with this plan. Thank you again for allowing me to participate in Ban's care. I shall continue to keep you advised of his progress. Plan Of Treatment Pending Test Test Name Order Date US abdomen complete 08/19/2024 Future Test Test Name Order Date UPPER GI ENDOSCOPY 08/19/2024 COLONOSCOPY 08/19/2024 Insurance Providers Payer Name Payer Address Payer Phone Subscriber Number Group Number Insured Name Patient Relationship to Insured Coverage Start Date Coverage End Date [facility] [address] [facility] [place] [address] [phone] [id number] BAN REGALADO Self - patient is the insured Medical (General) History Medical History History ICD Code Tachycardia-Dr. Vences Asthma-Dr. 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 Poole 2 024 Tonsillectomy Broken right femur Hernia
== END 2025-05-22 12:02 | disposition home or self-care (01) ==
LOC: HO.HMCHD 11:11
PROVIDERS: PCP Family Medicine; Visit Provider Physician Assistant
DX: I25.10 Atherosclerotic heart disease of native coronary artery without angina pectoris (principal); F32.A Depression, unspecified; I10 Essential (primary) hypertension; K21.9 Gastro-esophageal reflux disease without esophagitis; R42 Dizziness and giddiness; I87.2 Venous insufficiency (chronic) (peripheral)

== ENCOUNTER → 2025-05-22 11:11 | Outpatient (BNVA) | payer OTHER, SELFPAY | PROVIDERS: PCP Family Medicine; Visit Provider Physician Assistant | DX: Z76.89 Persons encountering health services in other specified circumstances (principal); I25.10 Atherosclerotic heart disease of native coronary artery without angina pectoris; F32.A Depression, unspecified; I10 Essential (primary) hypertension; K21.9 Gastro-esophageal reflux disease without esophagitis; R42 Dizziness and giddiness; I87.2 Venous insufficiency (chronic) (peripheral); Z79.899 Other long term (current) drug therapy; Z13.31 Encounter for screening for depression; Z13.39 Encounter for screening examination for other mental health and behavioral disorders | CPT/HCPCS: 96127 ==

== ENCOUNTER → 2025-09-22 09:31 | Outpatient (BNVA) | payer SELFPAY | PROVIDERS: PCP Family Medicine; Visit Provider Internal Medicine Cardiovascular Disease | DX: R06.02 Shortness of breath (principal); R00.2 Palpitations; R42 Dizziness and giddiness | CPT/HCPCS: 93005; 99212 ==